=== PATIENT | female | born 1970 | race Hispanic/Latino ===

== ENCOUNTER 2021-08-15 21:42 | Emergency (ER) | payer OTHER, SELFPAY ==
--- OUTSIDE RECORDS SUMMARY | 2021-08-15 23:25 | XMS REPORT | Continuity of Care Document ---
:[address] [facility] t Address [address] [place] [address] Care Team Providers Name Role Phone Kasi Veliz Attending Clinician Unavailable FRANCIS Attending Clinician Unavailable RAUEDL Attending Clinician Unavailable Devaughn Sidhu DO Attending Clinician Raudel VARGAS Attending Clinician Francis BEAN Attending Clinician Gramm [employer], A Attending Clinician Doctor Unassigned, Name Attending Clinician Unavailable Only, Test Attending Clinician Unavailable Marcio BEAN, [place] Attending Clinician MARCIO, [place] Attending Clinician Unavailable Nacho BEAN, Cam Attending Clinician FRANCIS Admitting Clinician Unavailable Francis BEAN Admitting Clinician Payers Payer Name Policy Type Policy Number Effective Date Expiration Date Cindi BROWN O [id number] 2016 00:00:00 Problems Condition Condition Condition Status Onset Resolution Last Treating Co mments Source Name Details Category Date Date Treatment Clinician Date Indigestio Indigestio Disease Active Overview : Univers n n 07-01 Added ity of 00:00: automatic [place] 00 ally from Medical request Branch for surgery [id number] Encounter Encounter Disease Active Overview: Univers for for 07-01 Added ity of screening screening 00:00[place] colon[place] colonoscop 00 ally from Medical y y request Branch for surgery [id number] Obesity Obesity Disease Active Univers (BMI (BMI 1-29 ity of 30-39.9) 30-39.9) 00:00: [place] 00 Medical Branch Stress Stress Disease Active Univers incontinen incontinen 1-29 it y of ce ce 00:00: [place] 00 Medical Branch Family Family Disease Active Univers history of history of 05-21 it y of breast breast 00:00: [place] cancer in cancer in 00 Medi shameka mother mother Branch Well woman Well woman Disease Active U nivers exam with exam with - ity of routine routine 00:00: [place] gynecologi gynecologi 00 Me dical shameka exam shameka exam Branch Allergies, Adverse Reactions, Alerts Allergy Allergy Status Severity Reaction(s) Onset Inactive Treating Comm ents Source Name Type Date Date Clinician NO KNOWN Drug Active Univers ALLERGIE Class ity of S [facility] Social History Social Habit Start Date Stop Date Quantity Comments Source Exposure to Not sure [facility] SARS-CoV-2 [facility] (event) [place] Tobacco use and 2020-05-31 2020-05-31 Former user Universi ty of exposure 00:00:00 00:00:00 [facility] Alcohol intake 2020-05-31 2020-05-31 Current drinker Unive rsity of 00:00:00 00:00:00 of alcohol [facility] (finding) [place] Alcohol Comment 2017-05-21 2017-05-21 rare Universit y of 00:00:00 00:00:00 [facility] History of 1996-05-21 Cigarette Smoker Universi ty of tobacco use 00:00:00 [facility] Sex Ass[birth year] At [birth year] Universit y of 00:00:00 00:00:00 [facility] Smoking Status Start Date Stop Date Source Former smoker 2020-05-31 00:00:00 2020-05-31 00:00:00 Universi ty of [facility] Medications Ordered Filled Start Stop Current Ordering Indication Dosage Frequency Signature Comments Components Source Medication Medication Date Date Medication? Clinician (SIG) Name Name metroNIDAZO Yes [id number] 500mg Take 1 Univers LE 500 mg 2-03 tablet by ity o f tablet 00:00: mouth [place] 00 every 12 Medical (twelve) Branch hours. metroNIDAZO Yes [id number] 500mg Take 1 Univers LE 500 mg 2-03 tablet by ity o f tablet 00:00: mouth [place] 00 every 12 Medical (twelve) Branch hours. metroNIDAZO Yes [id number] 500mg Take 1 Univers LE 500 mg 2-03 tablet by ity o f tablet 00:00: mouth [place] 00 every 12 Medical (twelve) Branch hours. fluconazole 2020-2020- No [id number] 150mg Take 1 Univers (DIFLUCAN) 2-03 02-04 tablet by ity of 150 mg 00:00: 05:59 [place] tablet [place] :00 now for 1 Medical dose. Branch fluconazole 2020- No [id number] 150mg Take 1 Univers (DIFLUCAN) 2-03 02-04 tablet by ity of 150 mg 00:00: 05:59 [place] tablet 00 :00 now for 1 Medical dose. Branch mv-mn/iron/ 2020- No Take by U nivers folic 205-31 mouth. ity of acid/herb 19:02: 00:00 [place] 190 00 :00 Medical (VITAMIN D3 Branch COMPLETE ORAL) mv-mn/iron/ 2020- No Take by U nivers folic 205-31 mouth. ity of acid/herb 19:02: 00:00 [place] 190 00 :00 Medical (VITAMIN D3 Branch COMPLETE ORAL) mv-mn/iron/ 2020- No Take by U nivers folic 205-31 mouth. ity of acid/herb 19:02: 00:00 [place] 190 00 :00 Medical (VITAMIN D3 Branch COMPLETE ORAL) mv-mn/iron/ 2019-04 Yes Take by Un lauryn folic 0-15 mouth. ity of acid/herb 14:27: [place] 190 05 Medical (VITAMIN D3 Branch COMPLETE ORAL) mv-mn/iron/ 2019- Yes Take by Un lauryn folic 0-15 mouth. ity of acid/herb 14:27: [place] 190 05 Medical (VITAMIN D3 Branch COMPLETE ORAL) pantoprazol 2019-0 Yes [id number] 40mg Take 1 Univers e 40 mg EC 8-04 tablet by ity of tablet 00:00: mouth [place] 00 daily. Medical Branch pantoprazol 2019-0 Yes [id number] 40mg Take 1 Univers e 40 mg EC 8-04 tablet by ity of tablet 00:00: mouth [place] 00 daily. Medical Branch pantoprazol 2020-0 Yes [id number] 40mg Take 1 Univers e 40 mg EC 8-04 tablet by ity of tablet 00:00: mouth [place] 00 daily. Medical Branch pantoprazol 2020-0 Yes [id number] 40mg Take 1 Univers e 40 mg EC 8-04 tablet by ity of tablet 00:00: mouth [place] 00 daily. Medical Branch pantoprazol 2020-0 Yes [id number] 40mg Take 1 Univers e 40 mg EC 8-04 tablet by ity of tablet 00:00: mouth [place] 00 daily. Medical Branch pantoprazol 2020-0 Yes [id number] 40mg Take 1 Univers e 40 mg EC 8-04 tablet by ity of tablet 00:00: mouth [place] 00 daily. Medical Branch pantoprazol 2020-0 Yes [id number] 40mg Take 1 Univers e 40 mg EC 8-04 tablet by ity of tablet 00:00: mouth [place] 00 daily. Medical Branch pantoprazol 2020-0 Yes [id number] 40mg Take 1 Univers e 40 mg EC 8-04 tablet by ity of tablet 00:00: mouth [place] 00 daily. Medical Branch pantoprazol 2020-0 Yes [id number] 40mg Take 1 Univers e 40 mg EC 8-04 tablet by ity of tablet 00:00: mouth [place] 00 daily. Medical Branch pantoprazol 2020-0 Yes [id number] 40mg Take 1 Univers e 40 mg EC 8-04 tablet by ity of tablet 00:00: mouth [place] 00 daily. Medical Branch pantoprazol 2020-0 Yes [id number] 40mg Take 1 Univers e 40 mg EC 8-04 tablet by ity of tablet 00:00: mouth [place] 00 daily. Medical Branch amoxicillin 2020-0 Yes [id number] 1000mg Take 2 Univers 500 mg 7-07 capsules ity of capsule 00:00: [place] mouth 2 [place] 00 (two) Medical times Branch daily. metroNIDAZO 2020-0 Yes [id number] 500mg Take 1 Univers LE (FLAGYL) 7-07 tablet by ity of 500 mg 00:00: mouth 2 [place] tablet 00 (two) Medical times Branch daily. Bismuth 2020-0 Yes [id number] 15mL Take 15 mL Univers Subsalicyla 7-07 by mouth 4 it y of te 00:00: (four) [place] (PEPTO-BISM 00 times Medical OL MAX ST) daily. Branch 525 mg/15 mL suspension amoxicillin 2020-0 Yes [id number] 1000mg Take 2 Univers 500 mg 7-07 capsules ity of capsule 00:00: [place] mouth 2 [place] 00 (two) Medical times Branch daily. metroNIDAZO 2020-0 Yes [id number] 500mg Take 1 Univers LE (FLAGYL) 7-07 tablet by ity of 500 mg 00:00: mouth 2 [place] tablet 00 (two) Medical times Branch daily. Bismuth 2020-0 Yes [id number] 15mL Take 15 mL Univers Subsalicyla 7-07 by mouth 4 it y of te 00:00: (four) [place] (PEPTO-BISM 00 times Medical OL MAX ST) daily. Branch 525 mg/15 mL suspension amoxicillin 2020-0 Yes [id number] 1000mg Take 2 Univers 500 mg 7-07 capsules ity of capsule 00:00: [place] mouth 2 [place] 00 (two) Medical times Branch daily. metroNIDAZO 2020-0 Yes [id number] 500mg Take 1 Univers LE (FLAGYL) 7-07 tablet by ity of 500 mg 00:00: mouth 2 [place] tablet 00 (two) Medical times Branch daily. Bismuth 2020-0 Yes [id number] 15mL Take 15 mL Univers Subsalicyla 7-07 by mouth 4 it y of te 00:00: (four) [place] (PEPTO-BISM 00 times Medical OL MAX ST) daily. Branch 525 mg/15 mL suspension amoxicillin 2020-0 Yes [id number] 1000mg Take 2 Univers 500 mg 7-07 capsules ity of capsule 00:00: [place] mouth 2 [place] 00 (two) Medical times Branch daily. metroNIDAZO 2020-0 Yes [id number] 500mg Take 1 Univers LE (FLAGYL) 7-07 tablet by ity of 500 mg 00:00: mouth 2 [place] tablet 00 (two) Medical times Branch daily. Bismuth 2020-0 Yes [id number] 15mL Take 15 mL Univers Subsalicyla 7-07 by mouth 4 it y of te 00:00: (four) [place] (PEPTO-BISM 00 times Medical OL MAX ST) daily. Branch 525 mg/15 mL suspension amoxicillin 2020-0 Yes [id number] 1000mg Take 2 Univers 500 mg 7-07 capsules ity of capsule 00:00: [place] mouth 2 [place] 00 (two) Medical times Branch daily. metroNIDAZO 2020-0 Yes [id number] 500mg Take 1 Univers LE (FLAGYL) 7-07 tablet by ity of 500 mg 00:00: mouth 2 [place] tablet 00 (two) Medical times Branch daily. Bismuth 2020-0 Yes [id number] 15mL Take 15 mL Univers Subsalicyla 7-07 by mouth 4 it y of te 00:00: (four) [place] (PEPTO-BISM 00 times Medical OL MAX ST) daily. Branch 525 mg/15 mL suspension amoxicillin 2020-0 Yes [id number] 1000mg Take 2 Univers 500 mg 7-07 capsules ity of capsule 00:00: [place] mouth 2 [place] 00 (two) Medical times Branch daily. metroNIDAZO 2020-0 Yes [id number] 500mg Take 1 Univers LE (FLAGYL) 7-07 tablet by ity of 500 mg 00:00: mouth 2 [place] tablet 00 (two) Medical times Branch daily. Bismuth 2020-0 Yes [id number] 15mL Take 15 mL Univers Subsalicyla 7-07 by mouth 4 it y of te 00:00: (four) [place] (PEPTO-BISM 00 times Medical OL MAX ST) daily. Branch 525 mg/15 mL suspension amoxicillin 2020-0 Yes [id number] 1000mg Take 2 Univers 500 mg 7-07 capsules ity of capsule 00:00: by mouth 2 [place] 00 (two) Medical times Branch daily. metroNIDAZO 2020-0 Yes [id number] 500mg Take 1 Univers LE (FLAGYL) 7-07 tablet by ity of 500 mg 00:00: mouth 2 [place] tablet 00 (two) Medical times Branch daily. Bismuth 2020-0 Yes [id number] 15mL Take 15 mL Univers Subsalicyla 7-07 by mouth 4 it y of te 00:00: (four) [place] (PEPTO-BISM 00 times Medical OL MAX ST) daily. Branch 525 mg/15 mL suspension amoxicillin 2020-0 2021- No [id number] 1000mg Take 2 Univers 500 mg 7-07 02-01 capsules ity of capsule 00:00: 00:00 by mouth 2 [place] 00 :00 (two) Medical times Branch daily. metroNIDAZO 2020-0 202- No [id number] 500mg Take 1 Univers LE (FLAGYL) 11-03- tablet by it y of 500 mg 00:00: 00:00 mouth 2 [place] tablet 00 :00 (two) Medical times Branch daily. Bismuth 2020-0 2020- No [id number] 15mL Take 15 mL Univers Subsalicyla 11-03 by mouth 4 i ty of te 00:00: 00:00 (four) [place] (PEPTO-BISM 00 :00 times Medical OL MAX ST) daily. Branch 525 mg/15 mL suspension amoxicillin 2020-0 2020- No [id number] 1000mg Take 2 Univers 500 mg 11-03 capsules ity of capsule 00:00: 00:00 by mouth 2 [place] 00 :00 (two) Medical times Branch daily. metroNIDAZO 2020-0 2020- No [id number] 500mg Take 1 Univers LE (FLAGYL) 11-03 tablet by it y of 500 mg 00:00: 00:00 mouth 2 [place] tablet 00 :00 (two) Medical times Branch daily. Bismuth 2020-0 2020- No [id number] 15mL Take 15 mL Univers Subsalicyla 11-03 by mouth 4 i ty of te 00:00: 00:00 (four) [place] (PEPTO-BISM 00 :00 times Medical [address]) daily. Branch 525 mg/15 mL suspension amoxicillin 2020-0 2020- No [id number] 1000mg Take 2 Univers 500 mg 11-03 capsules ity of capsule 00:00: 00:00 by mouth 2 [place] 00 :00 (two) Medical times Branch daily. metroNIDAZO 2020-0 2020- No [id number] 500mg Take 1 Univers LE (FLAGYL) 11-03 tablet by it y of 500 mg 00:00: 00:00 mouth 2 [place] tablet 00 :00 (two) Medical times Branch daily. Bismuth 2020-0 2020- No [id number] 15mL Take 15 mL Univers Subsalicyla 11-03 by mouth 4 i ty of te 00:00: 00:00 (four) [place] (PEPTO-BISM 00 :00 times Medical OL [address]) daily. Branch 525 mg/15 mL suspension mv-mn/iron/ 2020-0 Yes Take by Un lauryn folic 10-23 mouth. ity of acid/herb 15:12: [place] Medical (VITAMIN D3 Branch COMPLETE ORAL) mv-mn/iron/ 2020-0 Yes Take by Un lauryn folic 10-23 mouth. ity of acid/herb 15:12: Medical (VITAMIN D3 Branch COMPLETE ORAL) mv-mn/iron/ 2020-0 Yes Take by Un lauryn folic 10-23 mouth. ity of acid/herb 15:12: Medical (VITAMIN D3 Branch COMPLETE ORAL) mv-mn/iron/ 2020-0 Yes Take by Un lauryn folic 10-23 mouth. ity of acid/herb 15:12: Medical (VITAMIN D3 Branch COMPLETE ORAL) mv-mn/iron/ 2020-0 Yes Take by Un lauryn folic 10-23 mouth. ity of acid/herb 15:12: Medical (VITAMIN D3 Branch COMPLETE ORAL) mv-mn/iron/ 2020-0 Yes Take by Un lauryn folic 10-23 mouth. ity of acid/herb 15:12: Medical (VITAMIN D3 Branch COMPLETE ORAL) mv-mn/iron/ 2020-0 Yes Take by Un lauryn folic 10-23 mouth. ity of acid/herb 15:12: Medical (VITAMIN D3 Branch COMPLETE ORAL) water for 2019-0 Yes PRN, Univers irrigation 10-23 Starting ity o f irrigation 12:35: Fri [place] solution 00 10/24/19 at Medic al 0735, Branch Until Discontinu ed, Routine, Intra-op simethicone 2019-0 Yes PRN, [facility] s (GAS RELIEF 10-23 Starting ity of (SIMETHICON 12:35: Fri [place] E)) 40 00 10/24/19 at Medical mg/0.6 mL 0735, Branch drops Until Discontinu ed, Routine, Intra-op lactated 2019- 2020- No [facility] 10-23 06-26 mL/hr, ity of infusion 11:45: 11:49 1,000 mL, [place] 1,000 mL 00 :00 IV Medical Infusion, Branch ONCE, 1 dose, Sun10/24/19 at 0645, Routine, [facility] Pre-op pantoprazol 2019-0 Yes [id number] 40mg Take 1 Univers e 40 mg EC 6-26 tablet by ity of tablet 00:00: mouth [place] 00 daily. Medical Branch pantoprazol 2020-0 Yes [id number] 40mg Take 1 Univers e 40 mg EC 6-26 tablet by ity of tablet 00:00: mouth [place] 00 daily. Medical Branch pantoprazol 2020-0 Yes [id number] 40mg Take 1 Univers e 40 mg EC 6-26 tablet by ity of tablet 00:00: mouth [place] 00 daily. Medical Branch pantoprazol 2020-0 Yes [id number] 40mg Take 1 Univers e 40 mg EC 6-26 tablet by ity of tablet 00:00: mouth [place] 00 daily. Medical Branch pantoprazol 2020-0 2020- No [id number] 40mg Take 1 Univers e 40 mg EC 6-26 07-30 tablet by ity of tablet 00:00: 00:00 mouth [place] 00 :00 daily. Medical Branch peg-electro 2020-0 Yes Take as Uni vers lyte soln 3-03 directed ity of 236-22.74-6 00:00: [place] .74 -5.86 00 Medical [facility] Branch solution peg-electro 2020-0 Yes Take as Uni vers lyte soln 3-03 directed ity of 236-22.74-6 00:00: [place] .74 -5.86 00 Medical [facility] Branch solution peg-electro 2020-0 Yes Take as Uni vers lyte soln 3-03 directed ity of 236-22.74-6 00:00: [place] .74 -5.86 00 Medical gram Branch solution peg-electro 2020-0 Yes Take as Uni vers lyte soln 3-03 directed ity of 236-22.74-6 00:00: [place] .74 -5.86 00 Medical [facility] Branch solution peg-electro 2020-0 Yes Take as Uni vers lyte soln 3-03 directed ity of 236-22.74-6 00:00: [place] .74 -5.86 00 Medical gram Branch solution peg-electro 2020-0 Yes Take as Uni vers lyte soln 3-03 directed ity of 236-22.74-6 00:00: [place] .74 -5.86 00 Medical gram Branch solution peg-electro 2020-0 Yes Take as Uni vers lyte soln 3-03 directed ity of 236-22.74-6 00:00: [place] .74 -5.86 00 Medical gram Branch solution peg-electro 2019-0 Yes Take as Uni vers lyte soln 06-30 directed ity of 236-22.74-6 00:00: [place] .74 -5.86 00 Medical gram Branch solution peg-electro 2019-0 2020- No Take as Un lauryn lyte soln 3- 06- directed ity o f 236-22.74-6 00:00: 00:00 [place] .74 -5.86 00 :00 Medical gram Branch solution isoniazid 2019-0 2020- No 300mg Take 300 Un lauryn 300 mg 1-29 01-29 mg by ity of tablet 19:58: 00:00 mouth [place] 41 :00 daily. Medical Branch isoniazid 2019-0 2020- No 300mg Take 300 Un lauryn 300 mg 1-29 01-29 mg by ity of tablet 19:58: 00:00 mouth [place] 41 :00 daily. Medical Branch norgestimat 2020-0 Yes [id number] 1{tbl} Take 1 Univers e-ethinyl 1-29 tablet by ity o f estradiol 00:00: mouth [place] 0.25-35 00 daily. Medical mg-mcg per Branch tablet norgestimat 2020-0 Yes [id number] 1{tbl} Take 1 Univers e-ethinyl 1-29 tablet by ity o f estradiol 00:00: mouth [place] 0.25-35 00 daily. Medical mg-mcg per Branch tablet norgestimat 2020-0 Yes [id number] 1{tbl} Take 1 Univers e-ethinyl 1-29 tablet by ity o f estradiol 00:00: mouth [place] 0.25-35 00 daily. Medical mg-mcg per Branch tablet norgestimat 2020-0 Yes [id number] 1{tbl} Take 1 Univers e-ethinyl 1-29 tablet by ity o f estradiol 00:00: mouth [place] 0.25-35 00 daily. Medical mg-mcg per Branch tablet norgestimat 2020-0 Yes [id number] 1{tbl} Take 1 Univers e-ethinyl 1-29 tablet by ity o f estradiol 00:00: mouth [place] 0.25-35 00 daily. Medical mg-mcg per Branch tablet norgestimat 2020-0 Yes [id number] 1{tbl} Take 1 Univers e-ethinyl 1-29 tablet by ity o f estradiol 00:00: mouth [place] 0.25-35 00 daily. Medical mg-mcg per Branch tablet norgestimat 2020-0 Yes [id number] 1{tbl} Take 1 Univers e-ethinyl 1-29 tablet by ity o f estradiol 00:00: mouth [place] 0.25-35 00 daily. Medical mg-mcg per Branch tablet norgestimat 2020-0 Yes [id number] 1{tbl} Take 1 Univers e-ethinyl 1-29 tablet by ity o f estradiol 00:00: mouth [place] 0.25-35 00 daily. Medical mg-mcg per Branch tablet norgestimat 2020-0 Yes [id number] 1{tbl} Take 1 Univers e-ethinyl 1-29 tablet by ity o f estradiol 00:00: mouth [place] 0.25-35 00 daily. Medical mg-mcg per Branch tablet norgestimat 2020-0 Yes [id number] 1{tbl} Take 1 Univers e-ethinyl 1-29 tablet by ity o f estradiol 00:00: mouth [place] 0.25-35 00 daily. Medical mg-mcg per Branch tablet norgestimat 2020-0 Yes [id number] 1{tbl} Take 1 Univers e-ethinyl 1-29 tablet by ity o f estradiol 00:00: mouth [place] 0.25-35 00 daily. Medical mg-mcg per Branch tablet norgestimat 2020-0 Yes [id number] 1{tbl} Take 1 Univers e-ethinyl 1-29 tablet by ity o f estradiol 00:00: mouth [place] 0.25-35 00 daily. Medical mg-mcg per Branch tablet norgestimat 2020-0 Yes [id number] 1{tbl} Take 1 Univers e-ethinyl 1-29 tablet by ity o f estradiol 00:00: mouth [place] 0.25-35 00 daily. Medical mg-mcg per Branch tablet norgestimat 2020-0 Yes [id number] 1{tbl} Take 1 Univers e-ethinyl 1-29 tablet by ity o f estradiol 00:00: mouth [place] 0.25-35 00 daily. Medical mg-mcg per Branch tablet norgestimat 2020-0 Yes [id number] 1{tbl} Take 1 Univers e-ethinyl 1-29 tablet by ity o f estradiol 00:00: mouth [place] 0.25-35 00 daily. Medical mg-mcg per Branch tablet norgestimat 2020-0 Yes [id number] 1{tbl} Take 1 Univers e-ethinyl 1-29 tablet by ity o f estradiol 00:00: mouth [place] 0.25-35 00 daily. Medical mg-mcg per Branch tablet norgestimat 2020-0 Yes [id number] 1{tbl} Take 1 Univers e-ethinyl 1-29 tablet by ity o f estradiol 00:00: mouth [place] 0.25-35 00 daily. Medical mg-mcg per Branch tablet norgestimat 2020-0 Yes [id number] 1{tbl} Take 1 Univers e-ethinyl 1-29 tablet by ity o f estradiol 00:00: mouth [place] 0.25-35 00 daily. Medical mg-mcg per Branch tablet norgestimat 2020-0 Yes [id number] 1{tbl} Take 1 Univers e-ethinyl 1-29 tablet by ity o f estradiol 00:00: mouth [place] 0.25-35 00 daily. Medical mg-mcg per Branch tablet norgestimat 2020-0 Yes [id number] 1{tbl} Take 1 Univers e-ethinyl 1-29 tablet by ity o f estradiol 00:00: mouth [place] 0.25-35 00 daily. Medical mg-mcg per Branch tablet norgestimat 2020-0 Yes [id number] 1{tbl} Take 1 Univers e-ethinyl 1-29 tablet by ity o f estradiol 00:00: mouth [place] 0.25-35 00 daily. Medical mg-mcg per Branch tablet norgestimat 2020-0 Yes [id number] 1{tbl} Take 1 Univers e-ethinyl 1-29 tablet by ity o f estradiol 00:00: mouth [place] 0.25-35 00 daily. Medical mg-mcg per Branch tablet norgestimat 2020-0 2021- No [id number] 1{tbl} Take 1 Univers e-ethinyl 1-29 02-01 tablet by ity of estradiol 00:00: 00:00 mouth [place] 0.25-35 00 :00 daily. Medical mg-mcg per Branch tablet norgestimat 2020-0 2020- No [id number] 1{tbl} Take 1 Univers e-ethinyl 05-28 tablet by ity of estradiol 00:00: 00:00 mouth [place] 0.25-35 00 :00 daily. Medical mg-mcg per Branch tablet norgestimat 2020-0 2020- No [id number] 1{tbl} Take 1 Univers e-ethinyl 05-28 tablet by ity of estradiol 00:00: 00:00 mouth [place] 0.25-35 00 :00 daily. Medical mg-mcg per Branch tablet mometasone 2020-0 Yes Univers 50 1-05 ity of mcg/actuati 00:00: [place] on nasal 00 Medical spray Branch mometasone 2020-0 Yes Univers 50 1-05 ity of mcg/actuati 00:00: [place] on nasal 00 Medical spray Branch mometasone 2020-0 Yes Univers 50 1-05 ity of mcg/actuati 00:00: [place] on nasal 00 Medical spray Branch mometasone 2020-0 Yes Univers 50 1-05 ity of mcg/actuati 00:00: [place] on nasal 00 Medical spray Branch mometasone 2020-0 Yes Univers 50 1-05 ity of mcg/actuati 00:00: [place] on nasal 00 Medical spray Branch mometasone 2020-0 Yes Univers 50 1-05 ity of mcg/actuati 00:00: [place] on nasal 00 Medical spray Branch mometasone 2020-0 Yes Univers 50 1-05 ity of mcg/actuati 00:00: [place] on nasal 00 Medical spray Branch mometasone 2020-0 Yes Univers 50 1-05 ity of mcg/actuati 00:00: [place] on nasal 00 Medical spray Branch mometasone 2020-0 Yes Univers 50 1-05 ity of mcg/actuati 00:00: [place] on nasal 00 Medical spray Branch mometasone 2020-0 Yes Univers 50 1-05 ity of mcg/actuati 00:00: [place] on nasal 00 Medical spray Branch mometasone 2020-0 Yes Univers 50 1-05 ity of mcg/actuati 00:00: [place] on nasal 00 Medical spray Branch mometasone 2020-0 Yes Univers 50 1-05 ity of mcg/actuati 00:00: [place] on nasal 00 Medical spray Branch mometasone 2020-0 Yes Univers 50 1-05 ity of mcg/actuati 00:00: [place] on nasal 00 Medical spray Branch mometasone 2020-0 Yes Univers 50 1-05 ity of mcg/actuati 00:00: [place] on nasal 00 Medical spray Branch mometasone 2020-0 Yes Univers 50 1-05 ity of mcg/actuati 00:00: [place] on nasal 00 Medical spray Branch mometasone 2020-0 Yes Univers 50 1-05 ity of mcg/actuati 00:00: [place] on nasal 00 Medical spray Branch mometasone 2020-0 Yes Univers 50 1-05 ity of mcg/actuati 00:00: [place] on nasal 00 Medical spray Branch mometasone 2020-0 Yes Univers 50 1-05 ity of mcg/actuati 00:00: [place] on nasal 00 Medical spray Branch mometasone 2020-0 Yes Univers 50 1-05 ity of mcg/actuati 00:00: [place] on nasal 00 Medical spray Branch mometasone 2020-0 Yes Univers 50 1-05 ity of mcg/actuati 00:00: [place] on nasal 00 Medical spray Branch mometasone 2020-0 Yes Univers 50 1-05 ity of mcg/actuati 00:00: [place] on nasal 00 Medical spray Branch mometasone 2020-0 Yes Univers 50 1-05 ity of mcg/actuati 00:00: [place] on nasal 00 Medical spray Branch mometasone 2020-0 Yes Univers 50 1-05 ity of mcg/actuati 00:00: [place] on nasal 00 Medical spray Branch mometasone 2020-0 Yes Univers 50 1-05 ity of mcg/actuati 00:00: [place] on nasal 00 Medical spray Branch mometasone 2020-0 Yes Univers 50 1-05 ity of mcg/actuati 00:00: [place] on nasal 00 Medical spray Branch mometasone 2020-0 Yes Univers 50 1-05 ity of mcg/actuati 00:00: [place] on nasal 00 Medical spray Branch mometasone 2020-0 Yes Univers 50 1-05 ity of mcg/actuati 00:00: [place] on nasal 00 Medical spray Branch mometasone 2020-0 Yes Univers 50 1-05 ity of mcg/actuati 00:00: [place] on nasal 00 Medical spray Branch norgestimat 2018-04 Yes [id number] 1{tbl} Take 1 Univers e-ethinyl 2-01 tablet by ity o f estradiol 00:00: mouth [place] 0.25-35 00 daily. Medical mg-mcg per Branch tablet norgestimat 2018-04 Yes [id number] 1{tbl} Take 1 Univers e-ethinyl 2-01 tablet by ity o f estradiol 00:00: mouth [place] 0.25-35 00 daily. Medical mg-mcg per Branch tablet norgestimat 2018-04 Yes [id number] 1{tbl} Take 1 Univers e-ethinyl 2-01 tablet by ity o f estradiol 00:00: mouth [place] 0.25-35 00 daily. Medical mg-mcg per Branch tablet norgestimat 2018-04 2020- No [id number] 1{tbl} Take 1 Univers e-ethinyl 2-01 -29 tablet by ity of estradiol 00:00: 00:00 mouth [place] 0.25-35 00 :00 daily. Medical mg-mcg per Branch tablet norgestimat 2018-04 2020- No [id number] 1{tbl} Take 1 Univers e-ethinyl 2-01 -29 tablet by ity of estradiol 00:00: 00:00 mouth [place] 0.25-35 00 :00 daily. Medical mg-mcg per Branch tablet mv-mn/iron/ Yes Take by Un lauryn folic 1-30 mouth. ity of acid/herb 19:16: [place] [id number] Medical (VITAMIN D3 Branch COMPLETE ORAL) mv-mn/iron/ Yes Take by Un lauryn folic 1-30 mouth. ity of acid/herb 19:16: [place] [id number] Medical (VITAMIN D3 Branch COMPLETE ORAL) mv-mn/iron/ Yes Take by Un lauryn folic 1-30 mouth. ity of acid/herb 19:16: [place] [id number] Medical (VITAMIN D3 Branch COMPLETE ORAL) mv-mn/iron/ Yes Take by Un lauryn folic 1-30 mouth. ity of acid/herb 19:16: [place] [id number] Medical (VITAMIN D3 Branch COMPLETE ORAL) mv-mn/iron/ Yes Take by Un lauryn folic 1-30 mouth. ity of acid/herb 19:16: [place] [id number] Medical (VITAMIN D3 Branch COMPLETE ORAL) mv-mn/iron/ 0 Yes Take by Un lauryn folic 1-30 mouth. ity of acid/herb 19:16: [place] [id number] Medical (VITAMIN D3 Branch COMPLETE ORAL) mv-mn/iron/ 0 Yes Take by Un lauryn folic 1-30 mouth. ity of acid/herb 19:16: [place] [id number] Medical (VITAMIN D3 Branch COMPLETE ORAL) mv-mn/iron/ 0 Yes Take by Un lauryn folic 1-30 mouth. ity of acid/herb 19:16: [place] [address] Medical (VITAMIN D3 Branch COMPLETE ORAL) mv-mn/iron/ 0 Yes Take by Un lauryn folic 1-30 mouth. ity of acid/herb 19:16: [place] [id number] Medical (VITAMIN D3 Branch COMPLETE ORAL) mv-mn/iron/ Yes Take by Un lauryn folic 1-30 mouth. ity of acid/herb 19:16: [place] [address] Medical (VITAMIN D3 Branch COMPLETE ORAL) mv-mn/iron/ Yes Take by Un lauryn folic 1-30 mouth. ity of acid/herb 19:16: [place] [address] Medical (VITAMIN D3 Branch COMPLETE ORAL) mv-mn/iron/ Yes Take by Un lauryn folic 1-30 mouth. ity of acid/herb 19:16: [place] [id number] Medical (VITAMIN D3 Branch COMPLETE ORAL) mv-mn/iron/ 0 Yes Take by Un lauryn folic 1-30 mouth. ity of acid/herb 19:16: [place] [address] Medical (VITAMIN D3 Branch COMPLETE ORAL) mv-mn/iron/ 0 Yes Take by Un lauryn folic 1-30 mouth. ity of acid/herb 19:16: [place] [address] Medical (VITAMIN D3 Branch COMPLETE ORAL) mv-mn/iron/ 0 Yes Take by Un lauryn folic 1-30 mouth. ity of acid/herb 19:16: [place] [id number] Medical (VITAMIN D3 Branch COMPLETE ORAL) mv-mn/iron/ 0 Yes Take by Un lauryn folic 1-30 mouth. ity of acid/herb 19:16: [place] [id number] Medical (VITAMIN D3 Branch COMPLETE ORAL) isoniazid 2018-0 Yes 300mg Take 300 Uni vers 300 mg 1-30 mg by ity of tablet 19:16: mouth [place] 50 daily. Medical Branch isoniazid 2019-0 Yes 300mg Take 300 Uni vers 300 mg 1-30 mg by ity of tablet 19:16: mouth [place] 50 daily. Medical Branch isoniazid 2019-0 Yes 300mg Take 300 Uni vers 300 mg 1-30 mg by ity of tablet 19:16: mouth [place] 50 daily. [facility] Immunizations Ordered Filled Immunization Date Status Comments [facility] e Immunization Name Name Influenza Virus 2019-05-28 Completed Universit y of Vaccine Quad .5 mL 00:00:00 [facility] IM 6+ MO Branch TDAP (ADACEL) 2019-05-28 Completed University of VACCINE 00:00:00 [facility] Influenza Virus 2019-05-28 Completed Universit y of Vaccine Quad .5 mL 00:00:00 [facility] IM 6+ MO Branch TDAP (ADACEL) 2019-05-28 Completed University of VACCINE 00:00:00 [facility] Influenza Virus 2019-05-28 Completed Universit y of Vaccine Quad .5 mL 00:00:00 [facility] IM 6+ MO Branch TDAP (ADACEL) 2019-05-28 Completed University of VACCINE 00:00:00 [facility] Influenza Virus 2019-05-28 Completed Universit y of Vaccine Quad .5 mL 00:00:00 [facility] IM 6+ MO Branch TDAP (ADACEL) 2019-05-28 Completed University of VACCINE 00:00:00 [facility] Influenza Virus 2019-05-28 Completed Universit y of Vaccine Quad .5 mL 00:00:00 [facility] IM 6+ MO Branch TDAP (ADACEL) 2019-05-28 Completed University of VACCINE 00:00:00 [facility] Influenza Virus 2019-05-28 Completed Universit y of Vaccine Quad .5 mL 00:00:00 [facility] IM 6+ MO Branch TDAP (ADACEL) 2019-05-28 Completed University of VACCINE 00:00:00 [facility] Influenza Virus 2019-05-28 Completed Universit y of Vaccine Quad .5 mL 00:00:00 [place] [facility] IM 6+ MO Branch TDAP (ADACEL) 2019-05-28 Completed University of VACCINE 00:00:00 [facility] Influenza Virus 2019-05-28 Completed Universit y of Vaccine Quad .5 mL 00:00:00 [place] [facility] IM 6+ MO Branch TDAP (ADACEL) 2019-05-28 Completed University of VACCINE 00:00:00 [facility] Influenza Virus 2019-05-28 Completed Universit y of Vaccine Quad .5 mL 00:00:00 [place] [facility] IM 6+ MO Branch TDAP (ADACEL) 2019-05-28 Completed University of VACCINE 00:00:00 [facility] Influenza Virus 2019-05-28 Completed Universit y of Vaccine Quad .5 mL 00:00:00 [place] [facility] IM 6+ MO Branch TDAP (ADACEL) 2019-05-28 Completed University of VACCINE 00:00:00 [facility] Influenza Virus 2019-05-28 Completed Universit y of Vaccine Quad .5 mL 00:00:00 [place] [facility] IM 6+ MO Branch TDAP (ADACEL) 2019-05-28 Completed University of VACCINE 00:00:00 [facility] Influenza Virus 2019-05-28 Completed Universit y of Vaccine Quad .5 mL 00:00:00 [facility] IM 6+ MO Branch TDAP (ADACEL) 2019-05-28 Completed University of VACCINE 00:00:00 [facility] Influenza Virus 2019-05-28 Completed Universit y of Vaccine Quad .5 mL 00:00:00 [place] [facility] IM 6+ MO Branch TDAP (ADACEL) 2019-05-28 Completed University of VACCINE 00:00:00 [facility] Influenza Virus 2019-05-28 Completed Universit y of Vaccine Quad .5 mL 00:00:00 [place] [facility] IM 6+ MO Branch TDAP (ADACEL) 2019-05-28 Completed University of VACCINE 00:00:00 [facility] Influenza Virus 2019-05-28 Completed Universit y of Vaccine Quad .5 mL 00:00:00 [place] [facility] IM 6+ MO Branch TDAP (ADACEL) 2019-05-28 Completed University of VACCINE 00:00:00 [facility] Influenza Virus 2019-05-28 Completed Universit y of Vaccine Quad .5 mL 00:00:00 [place] [facility] IM 6+ MO Branch TDAP (ADACEL) 2019-05-28 Completed University of VACCINE 00:00:00 [facility] Influenza Virus 2019-05-28 Completed Universit y of Vaccine Quad .5 mL 00:00:00 [place] [facility] IM 6+ MO Branch TDAP (ADACEL) 2019-05-28 Completed University of VACCINE 00:00:00 [facility] Influenza Virus 2019-05-28 Completed Universit y of Vaccine Quad .5 mL 00:00:00 [place] [facility] IM 6+ MO Branch TDAP (ADACEL) 2019-05-28 Completed University of VACCINE 00:00:00 [facility] Influenza Virus 2019-05-28 Completed Universit y of Vaccine Quad .5 mL 00:00:00 [place] [facility] IM 6+ MO Branch TDAP (ADACEL) 2019-05-28 Completed University of VACCINE 00:00:00 [facility] Influenza Virus 2019-05-28 Completed Universit y of Vaccine Quad .5 mL 00:00:00 [place] [facility] IM 6+ MO Branch TDAP (ADACEL) 2019-05-28 Completed University of VACCINE 00:00:00 [facility] Influenza Virus 2019-05-28 Completed Universit y of Vaccine Quad .5 mL 00:00:00 [place] [facility] IM 6+ MO Branch TDAP (ADACEL) 2019-05-28 Completed University of VACCINE 00:00:00 [facility] Influenza Virus 2019-05-28 Completed Universit y of Vaccine Quad .5 mL 00:00:00 [place] [facility] IM 6+ MO Branch TDAP (ADACEL) 2019-05-28 Completed University of VACCINE 00:00:00 [facility] Influenza Virus 2019-05-28 Completed Universit y of Vaccine Quad .5 mL 00:00:00 [place] [facility] IM 6+ MO Branch TDAP (ADACEL) 2019-05-28 Completed University of VACCINE 00:00:00 [facility] Influenza Virus 2019-05-28 Completed Universit y of Vaccine Quad .5 mL 00:00:00 [place] [facility] IM 6+ MO Branch TDAP (ADACEL) 2019-05-28 Completed University of VACCINE 00:00:00 [facility] Influenza Virus 2019-05-28 Completed Universit y of Vaccine Quad .5 mL 00:00:00 [place] [facility] IM 6+ MO Branch TDAP (ADACEL) 2019-05-28 Completed University of VACCINE 00:00:00 [facility] Influenza Virus 2019-05-28 Completed Universit y of Vaccine Quad .5 mL 00:00:00 [place] [facility] IM 6+ MO Branch TDAP (ADACEL) 2019-05-28 Completed University of VACCINE 00:00:00 [facility] Influenza Virus 2019-05-28 Completed Universit y of Vaccine Quad .5 mL 00:00:00 [place] [facility] IM 6+ MO Branch TDAP (ADACEL) 2019-05-28 Completed University of VACCINE 00:00:00 [facility] Influenza Virus 2019-05-28 Completed Universit y of Vaccine Quad .5 mL 00:00:00 [facility] IM 6+ MO Branch TDAP (ADACEL) 2019-05-28 Completed University of VACCINE 00:00:00 [facility] Vital Signs Vital Name Observation Time Observation Value Comments Source Systolic blood 2020-05-31 19:20:00 106 mm[Hg] Univer sity of pressure [facility] Diastolic blood 2020-05-31 19:20:00 66 mm[Hg] Unive rsity of pressure [facility] Heart rate 2020-05-31 19:20:00 77 /min Universi ty of [facility] Body temperature 2020-05-31 19:20:00 36.89 Skylar Univ ersity of [facility] Respiratory rate 2020-05-31 19:20:00 16 /min Univ ersity of [facility] Body height 2020-05-31 19:20:00 157.5 cm Universi ty of [facility] Body weight 2020-05-31 19:20:00 91.989 kg Universi ty of [facility] BMI 2020-05-31 19:20:00 37.09 kg/m2 Universi ty of [facility] Systolic blood 2020-02-12 14:26:00 103 mm[Hg] Univer sity of pressure [facility] Diastolic blood 2020-02-12 14:26:00 68 mm[Hg] Unive rsity of pressure [facility] Heart rate 2020-02-12 14:26:00 69 /min Universi ty of [facility] Body temperature 2020-02-12 14:26:00 36.39 Skylar Univ ersity of [facility] Respiratory rate 2020-02-12 14:26:00 16 /min Univ ersity of [facility] Branch Body height 2020-02-12 14:26:00 157.5 cm Universi ty of [facility] Branch Body weight 2020-02-12 14:26:00 88.814 kg Universi ty of [facility] Branch BMI 2020-02-12 14:26:00 35.81 kg/m2 Universi ty of [facility] Branch Systolic blood 2019-11-04 21:02:00 117 mm[Hg] Univer sity of pressure [facility] Branch Diastolic blood 2019-11-04 21:02:00 73 mm[Hg] Unive rsity of pressure [facility] Heart rate 2019-11-04 21:02:00 73 /min Universi ty of [facility] Body temperature 2019-11-04 21:02:00 36.56 Skylar Univ ersity of [facility] Respiratory rate 2019-11-04 21:02:00 18 /min Univ ersity of [facility] Body weight 2019-11-04 21:02:00 90.175 kg Universi ty of [facility] BMI 2019-11-04 21:02:00 36.35 kg/m2 Universi ty of [facility] Systolic blood 2019-10-24 14:05:00 112 mm[Hg] Univer sity of pressure [facility] Diastolic blood 2019-10-24 14:05:00 74 mm[Hg] Unive rsity of pressure [facility] Heart rate 2019-10-24 14:05:00 75 /min Universi ty of [facility] Respiratory rate 2019-10-24 14:05:00 16 /min Univ ersity of [facility] Oxygen saturation in 2019-10-24 14:05:00 100 /min [facility]ter[facility] blood by [facility] Pulse oximetry Branch Body temperature 2019-10-24 11:36:00 36.67 Skylar Univ ersity of [facility] Body weight 2019-10-09 20:44:00 90.7 kg Universi ty of [facility] BMI 2019-10-09 20:44:00 36.56 kg/m2 Universi ty of [facility] Body height 2019-09-08 14:40:00 157.5 cm Universi ty of [facility] Systolic blood 2019-07-01 20:05:00 108 mm[Hg] Univer sity of pressure [facility] Diastolic blood 2019-07-01 20:05:00 77 mm[Hg] Unive rsity of pressure [facility] Heart rate 2019-07-01 20:05:00 81 /min Universi ty of [facility] Body temperature 2019-07-01 20:05:00 37.17 Skylar Univ ersity of [facility] Respiratory rate 2019-07-01 20:05:00 18 /min Univ ersity of [facility] Body weight 2019-07-01 20:05:00 91.082 kg Universi ty of [facility] BMI 2019-07-01 20:05:00 36.73 kg/m2 Universi ty of [facility] Systolic blood 2019-05-28 18:55:00 123 mm[Hg] Univer sity of pressure [facility] Diastolic blood 2019-05-28 18:55:00 75 mm[Hg] Unive rsity of pressure [facility] Heart rate 2019-05-28 18:55:00 74 /min [facility] Body temperature 2019-05-28 18:55:00 37 Skylar [facility] Respiratory rate 2019-05-28 18:55:00 18 /min [facility] Body height 2019-05-28 18:55:00 157.5 cm [facility] Body weight 2019-05-28 18:55:00 92.534 kg [facility] BMI 2019-05-28 18:55:00 37.31 kg/m2 [facility] Procedures Procedure Date / Time Performing Clinician Source Performed POCT TEST 2020-05-31 19:33:00 Kelsy Starks [facility] COLONOSCOPY (ENDO) 2019-10-24 12:55:08 Angy Veliz [facility] EGD (ENDO) 2019-10-24 11:55:34 Angy Veliz [place] o [facility] POCT TEST 2019-10-24 11:47:00 Betty Sullivan [facility] COVID-19 (ID NOW RAPID 2019-10-23 17:56:00 Megan Blanco [facility] TESTING) [facility] NOTICE OF PRIVACY 2019-10-23 05:01:00 Doctor Unassigned, [facility] PRACTICES [place] [facility] ASSIGNMENT OF BENEFITS 2019-07-01 19:56:25 [facility] [place] [facility] TDAP (ADACEL) IMMUNIZATION 2019-05-28 19:25:07 [facility][id number][facility] 6+ 2019-05-28 19:25:07 Deandra Griffith [facility] MONTHS, IM, QUAD Medical Branch NO SHOW OR MISSED 2019-05-28 18:25:08 Doctor Unassigned, [facility] APPOINTMENT POLICY [place] [facility] h ACKNOWLEDGEMENT BI DIAGNOSTIC MAMMOGRAM 2019-05-21 18:58:44 Deandra Griffith [facility] BILATERAL Medical Branch ASSIGNMENT OF BENEFITS 2019-05-21 18:20:15 Doctor Unassigned, [facility] [place] [facility] Encounters Start End Encounter Admission Attending Care Care Encounter Source Date/Time Date/Time Type Type Clinicians Facility Department ID 2021-05-25 Outpatient Angy Vel[facility] [id number] 14:13:01 [id number] [facility] 2021-05-25 Outpatient Angy Veliz [facility] [id number] 12:04:05 [id number] [facility] 2021-02-24 [facility] [id number] Univers 12:36:36 MEGAN [facility] 2021-05-31 2021-05-31 [facility] [id number] Univers 13:00:00 13:00:00 KELSY [id number] [facility] 2020-08-12 2020-08-12 [facility] [id number] Univers 13:00:00 13:00:00 MEGAN [id number] [facility] 2020-07-21 2020-07-21 [facility] [id number] 2020-07-15 2020-07-15 Patient Nahum [facility] [id number] Univers 00:00:00 00:00:00 Outreach [facility] [id number] i ty of [facility] [id number] [phone] [place] dical [address] Branch 2020-06-02 2020-06-02 Case [facility] [id number] Univers 00:00:00 00:00:00 Management Kelsy Lay [id number] ity [id number] [phone] [place] dical nal [address] 2020-06-02 2020-06-02 Telephone [facility] [id number] Univers 00:00:00 00:00:00 Kelsy [place] [id number] i [id number] [phone] [address] 2020-06-01 2020-06-[address] [facility] [id number] Univers 14:15:00 14:15:00 [id number] [facility] 2020-06-01 2020-06-[address] [facility] [id number] Univers 14:15:00 14:15:00 [facility] 2020-05-31 2020-05-31 Office [facility] [id number] Univers 12:50:08 13:48:17 Visit Kelsy Lay [id number] [id number] [phone] [address] 2020-05-31 2020-05-31 [facility] [id number] Univers 13:00:00 13:00:00 KESLY [facility] 2020-03-25 2020-03-25 Outpatient [facility]LMLC [facility] [id number] [facility] 2020-03-12 2020-03-12 Outpatient [facility] [id number] [facility] 2020-03-03 2020-03-03 Outpatient STLMLC [facility] [id number] [facility] 2020-02-12 2020-02-12 Office [facility] [id number] Univers 09:19:29 09:59:12 Visit Megan Alireza [id number] [id number] [phone] [place] dical [facility] 188 [facility] 2020-02-12 2020-02-12 Outpatient R FRANCIS, [facility] [id number] Univers 09:15:00 09:15:00 MEGAN [id number] ity of [facility] 2020-02-12 2020-02-12 Outpatient R FRANCIS, [facility] [id number] Univers 09:15:00 09:15:00 MEGAN ity of [facility] 2020-02-05 2020-02-05 Outpatient R FRANCIS, [facility] [id number] Univers 14:30:00 14:30:00 MEGAN ity of [facility] 2020-02-03 2020-02-03 Outpatient R FRANCIS, [facility] [id number] Univers 14:30:00 14:30:00 MEGAN ity [facility] 2019-12-04 2019-12-04 Refill [facility] [id number] Univers 00:00:00 00:00:00 Jocelyn Lay [id number] [place]y [id number] [phone] [place]ical [address] 2019-12-02 2019-12-02 Refill Doctor [facility] [id number] Univers 00:00:00 00:00:00 UnassignedAlireza [id number] ity of [place] [id number] [phone] [place] dical [address] 2019-11-27 2019-11-27 [facility] [id number] Univers 00:00:00 00:00:00 Megan Lay [id number] i ty [id number] [phone] [place] dicmn [place]al [address] [place] [address] 2019-11-04 2019-11-04 Office [facility] [id number] Univers 15:39:29 16:22:04 Visit Megan Lay [id number] i [id number] [phone] [place] dical nal 377 [facility] 2019-11-04 2019-11-04 [facility] [id number] Univers 16:00:00 16:00:00 MEGAN itkatlin of [facility] 2019-10-24 2019-10-24 [facility] [id number] Univers 06:25:19 10:10:00 Encounter Megan Alireza [id number] [id number] [phone] [facility] [address] 2019-10-23 2019-10-23 Laboratory Only, Adc Test [facility] 1.2.840. 114 [id number] Univers 12:51:00 17:36:52 Only Casey Buckley [id number] [id number] [phone] [facility] [address] 2019-10-23 2019-10-[address] [facility] [id number] Univers 13:00:00 13:00:00 [id number] [facility] 2019-10-23 2019-10-23 Outpatient [facility] [id number] Univers 13:00:00 13:00:00 CASEY ity of [facility] 2019-10-23 2019-10-23 Orders Doctor BALTAZAR [id number] Univers 00:00:00 00:00:00 Only Unassigned, MICHAEL [id number] ity of [place] [facility] [id number] Pramod as [phone] [facility] [address] 2019-10-17 2019-10-17 Telephone [facility] 1.2.840.114 [id number] Univers 00:00:00 00:00:00 Megan Alireza [id number] [id number] [phone] [place] dical nal 377 [facility] 2019-08-18 2019-08-18 Telephone [facility] [id number] Univers 00:00:00 00:00:00 Jocelyn Lay [id number] [id number] [phone] [address] 2019-07-22 2019-07-22 Telephone [facility] [id number] Univers 00:00:00 00:00:00 Jocelyn Lay [id number] [id number] [phone] [address] 2019-07-14 2019-07-14 Telephone [facility] [id number] Univers 00:00:00 00:00:00 Jocelyn Lay [id number] [id number] [phone] [address] 2019-07-01 2019-07-01 Office Francis [facility] [id number] Univers 13:57:45 16:05:24 Visit Megan Lay [id number] i ty [id number] [phone] [address] 2019-07-01 2019-07-[address] [facility] [id number] Univers 14:00:00 14:00:00 MEGAN davis of [facility] 2019-07-01 2019-07-01 Orders Doctor DELANEY 1.2.840.114 [id number] Univers 00:00:00 00:00:00 Only Unassigned, MICHAEL [id number] ity of [place] [facility] [id number] Pramod as [phone] [address] 2019-05-28 2019-05-28 Office Deandra Griffith [facility] [id number] Univers 12:25:55 13:19:57 Visit Chad Lay [id number] [id number] [facility] [phone] W[place] dical nal [address] 2019-05-28 2019-05-28 Orders Doctor DELANEY 1.2.840.114 [id number] Univers 00:00:00 00:00:00 Only Unassigned, MICHAEL [id number] ity of [place] [facility] [id number] Pramod as [phone] [facility] [address] 2019-05-21 2019-05-21 [facility] Deandra Griffith [facility] [id number] Univers 12:21:00 23:59:00 Encounter [place] [id number] [id number] [phone] [facility] [address] 2019-05-21 2019-05-21 Orders Doctor DELANEY 1.2.840.114 [id number] Univers 00:00:00 00:00:00 Only Unassigned, MICHAEL [id number] ity of [place] [facility] [id number] Pramod as [phone] [address] Results Test Description Test Time Test Comments Results Result Comments Source POCT TEST 2020-05-31 19:33:00 Test Item Value Reference Range Interpretation Comme nts POCT PREG (test code = 1605) Negative On board controls acceptable with C Yes Line (test code = 3574) POCT PREG LOT # (test code = 3575) POCT PREG TEST DATE (test code = 3576) NEAL (test code = NEAL) accurate development and interpretation of all internal controls [facility] [id number] 19:33:00 Test Item Value Reference Range Interpretation Comments POCT PREG (test code Negative = 1605) On board controls Yes acceptable with C Line (test code = 3574) POCT PREG LOT # (test code = 3575) POCT PREG TEST DATE (test code = 3576) NEAL (test code = NEAL) accurate development and interpretation of all internal controls [facility] [id number] 19:33:00 Test Item Value Reference Range Interpretation Comments POCT PREG (test code Negative = 1605) On board controls Yes acceptable with C Line (test code = 3574) POCT PREG LOT # (test code = 3575) POCT PREG TEST DATE (test code = 3576) NEAL (test code = NEAL) accurate development and interpretation of all internal controls [facility] [id number] 11:50:00 Test Item Value Reference Range Interpretation Comments POCT PREG (test code = 1605) Negative On board controls acceptable with Yes C Line (test code = 3574) POCT PREG LOT # (test code = 3575) [id number] POCT PREG TEST DATE (test 2021-01-27 code = 3576) Lab Interpretation (test code = Normal 74264-6) [facility]ID NOW RAPID TESTING)2019-10-23 19:13:00 Test Item Value Reference Range Interpretation Comments SARS-CoV-2 Rapid ID NOW Not Detected Not Detected (test code = 58594-7) NEAL (test code = NEAL) ID NOW COVID-19 Assay is an isothermal nucleic acid amplification test intended for the qualitative detection of nucleic acid from SARS-CoV-2 viral RNA in nasopharyngeal (MOVE COORDINATOR) specimens. It is used under Emergency Use Authorization (EUA) by FDA. The limit of detection (LOD) of the assay is 125 Genome Equivalents/mL. A positive result is indicative of the presence of SARS-CoV-2 RNA. ?Clinical correlation with patient history and other diagnostic information is necessary to determine patient infection status. A negative (Not Detected) result does not preclude SARS-CoV-2 infection. In patients with clinical symptoms and other tests that are consistent with SARS-CoV-2 infection, negative results should be treated as presumptive negative and a new specimen should be tested with alternative PCR molecular test. Invalid: Please collect a new specimen for repeat patient testing if clinically indicated. Lab Interpretation Normal (test code = 76855-3) [facility] NOW RAPID TESTING)2019-10-23 19:13:00 Test Item Value Reference Range Interpretation Comments SARS-CoV-2 Rapid ID NOW Not Detected Not Detected (test code = 93426-8) NEAL (test code = NEAL) ID NOW COVID-19 Assay is an isothermal nucleic acid amplification test intended for the qualitative detection of nucleic acid from SARS-CoV-2 viral RNA in nasopharyngeal (MOVE COORDINATOR) specimens. It is used under Emergency Use Authorization (EUA) by FDA. The limit of detection (LOD) of the assay is 125 Genome Equivalents/mL. A positive result is indicative of the presence of SARS-CoV-2 RNA. ?Clinical correlation with patient history and other diagnostic information is necessary to determine patient infection status. A negative (Not Detected) result does not preclude SARS-CoV-2 infection. In patients with clinical symptoms and other tests that are consistent with SARS-CoV-2 infection, negative results should be treated as presumptive negative and a new specimen should be tested with alternative PCR molecular test. Invalid: Please collect a new specimen for repeat patient testing if clinically indicated. Lab Interpretation Normal (test code = 06950-9) [facility] [id number] 19:45:39Examination:BI DIAGNOSTIC MAMMOGRAM BILATERAL History:Patient is 49 year old and is seen for: ?Left breast pain. ?never had a mammogram and fam hx of breast cancer. Computer-aided detection (CAD) utilized. Comparisons : None available Findings:The breasts have scattered areas of fibroglandular density. There is no evidence of suspicious masses, calcifications, or other abnormal findings. Impression:No signs of malignancy. Recommendation:Annual mammographic follow-up - Bilateral BI-RADS Category: Both [facility]
[2021-08-15 23:26] LABS: Barbiturates NEGATIVE (NEGATIVE); Benzodiazepines NEGATIVE (NEGATIVE); Cocaine NEGATIVE (NEGATIVE); METHAMPHETAM NEGATIVE (NEGATIVE); Methadone NEGATIVE (NEGATIVE); Opiates NEGATIVE (NEGATIVE); Phencyclidine NEGATIVE (NEGATIVE); THC Cannibis NEGATIVE (NEGATIVE)
[2021-08-15 23:45] LABS: Absolute Lymphocytes (CBC) 2.3 K/uL (0.7-4.9); Hematocrit 39.8 % (36.0-45.0); Lymphocytes % 33.8 % (15.3-44.8); MPV 8.4 fL (7.6-11.3)
[2021-08-15 23:46] LABS: Protime INR 1.05
[2021-08-16] LABS: ALT/SGPT 20 U/L (12-78); AST/SGOT 9 U/L (15-37); Albumin 3.7 g/dL (3.4-5.0); Alkaline Phosphatase 84 U/L (45-117); BUN Blood Urea Nitrogen 13 mg/dL (7-18); Bicarbonate 24 mmol/L (21-32); Bilirubin Direct 0.1 mg/dL (0-0.2); Bilirubin Total 0.8 mg/dL (0.2-1.0); Glucose Level 102 mg/dL (74-106); Potassium 3.3 mmol/L (3.5-5.1); Protein, Total 7.6 g/dL (6.4-8.2); Sodium Level 139 mmol/L (136-145)
[2021-08-16 00:28] LABS: SARS-COV-2 RT PCR NEGATIVE (NEGATIVE)
[2021-08-16] MEDS ORDERED: NA CHLORIDE 0.9% 1,000 ML ONE (01:27)
[2021-08-16] MEDS ORDERED: POTASSIUM 25 MEQ EFFERV TAB ONE (01:27)
--- NOTE | 2021-08-16 14:38 | EDPHYS ---
Physician Documentation [facility] Name: Qi Romero Age: 51 yrs Sex: Female : 1970 Arrival Date: 08/15/2021 Time: 21:43 Bed 15 Private MD: ED Physician Chad Estes HPI: 08/15 22:00 This 51 yrs old Female presents to ER via Unassigned with complaints of cp Suicidal Ideation. 22:00 The patient presents to the emergency department with a history of a suicide gesture, cp where the patient took pills/medications, handful of OTC sleep aid medication Calms Forte and consumed a bottle of wine. 22:00 Onset: The symptoms/episode began/occurred today. Associated signs and symptoms: The cp patient has no apparent associated signs or symptoms. 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 Flu vaccine is not up to date. It has been more than one year since last vaccine. - Social history:: Smoking status: Patient reports the use of cigarette tobacco products, denies chronic smoking, but will smoke occasionally. ROS: 22:05 Constitutional: Negative for body aches, chills, fever, poor PO intake. cp 22:05 Eyes: Negative for injury, pain, redness, and discharge. cp 22:05 ENT: Negative for drainage from ear(s), ear pain, sore throat, difficulty swallowing, difficulty handling secretions. 22:05 Cardiovascular: Negative for chest pain. 22:05 Respiratory: Negative for cough, shortness of breath, wheezing. 22:05 Abdomen/GI: Negative for abdominal pain, nausea, vomiting, and diarrhea. 22:05 Neuro: Negative for altered mental status. 22:05 Psych: Positive for suicide gesture, Negative for auditory hallucinations, visual hallucinations. 22:05 All other systems are negative. Exam: 21:55 ECG was reviewed by the Attending Physician. cp 22:00 Constitutional: The patient appears in no acute distress, alert, awake, cp non-diaphoretic, non-toxic, well developed, well nourished. 22:00 Head/Face: Normocephalic, atraumatic. cp 22:00 Eyes: Periorbital structures: appear normal, Pupils: equal, round, and reactive to light and accomodation, Extraocular movements: intact throughout, Conjunctiva: normal, no exudate, no injection, Sclera: no appreciated abnormality, Lids and lashes: appear normal, bilaterally. 22:00 ENT: External ear(s): are unremarkable, Nose: is normal, Mouth: Lips: moist, Oral mucosa: pink and intact, moist, Posterior pharynx: Airway: no evidence of obstruction, patent. 22:00 Chest/axilla: Inspection: normal, Palpation: is normal, no crepitus, no tenderness. 22:00 Cardiovascular: Rate: tachycardic, Rhythm: regular, Edema: is not appreciated, JVD: is not appreciated. 22:00 Respiratory: the patient does not display signs of respiratory distress, Respirations: normal, no use of accessory muscles, labored breathing, is not present. 22:00 Abdomen/GI: Inspection: abdomen appears normal, Palpation: abdomen is soft and cp non-tender, in all quadrants. 22:00 Neuro: Orientation: to person, place \T\ time. Mentation: is normal, Motor: moves all cp fours, strength is normal, Sensation: is normal. Vital Signs: 21:40 BP 118 / 86; Pulse 107; Resp 16 S; Temp 98.9(O); Pulse Ox 100% on R/A; Weight 82.55 kg ag7 (R); Height 5 ft. 2 in. (157.48 cm); Pain 0/10; 08/16 00:30 BP 109 / 85 RA Supine (auto/); Pulse 98 MON; Resp 16 S; Pulse Ox 100% on R/A; Pain 0/10;ag7 06:35 BP 115 / 77; Pulse 97; Resp 18; Pulse Ox 99% on R/A; oe 07:53 BP 138 / 82; Pulse 90; Resp 18; Temp 98.8(O); Pulse Ox 99% on R/A; mh5 08/15 21:40 Body Mass Index 33.29 (82.55 kg, 157.48 cm) ag7 MDM: 08/15 21:50 Patient medically screened. cp 21:59 Other consultation: Poison control, at 22:00, monitor until clinical sober and have cp psych eval performed. 08/16 09:07 Differential diagnosis: Received phone call from [facility], they evaluated the patient [place] via telehealth, and advised that this is a high risk suicide recommends inpatient placement. Of note patient does not want to be placed in inpatient at this time, will proceed with involuntary placement. Data reviewed: vital signs, nurses notes. Counseling: I had a detailed discussion with the patient and/or guardian regarding: the historical points, exam findings, and any diagnostic results supporting the discharge/admit diagnosis, the presence of at least one elevated blood pressure reading (>120/80) during this emergency department visit, the need for outpatient follow up. Medical screen evaluation completed. EMTALA emergency medical condition absent. 14:35 ED course: Patient reports she is not suicidal and/or homicidal at this time and cp requests discharge to home. 08/15 21:50 Order name: Acetaminophen cp 08/15 21:50 Order name: Basic Metabolic Panel cp 08/15 21:50 Order name: CBC with Diff cp 08/15 21:50 Order name: ETOH Level; Complete Time: 00:57 cp 08/16 00:57 Interpretation: Reviewed. 08/15 21:50 Order name: Hepatic Function cp 08/15 21:50 Order name: PT-INR cp 08/15 21:50 Order name: Ptt, Activated cp 08/15 21:50 Order name: Salicylate cp 08/15 21:50 Order name: Urine Drug Screen cp 08/15 21:50 Order name: EKG; Complete Time: 21:53 cp 08/16 00:23 Order name: COVID-19/FLU A+B; Complete Time: 00:57 EDMS 08/16 05:01 Order name: ETOH Level ll3 08/15 21:50 Order name: EKG - Nurse/Tech; Complete Time: 04:38 cp 08/15 21:50 Order name: IV Saline Lock; Complete Time: 04:38 cp 08/15 21:50 Order name: Labs collected and sent; Complete Time: 04:38 cp 08/15 21:50 Order name: Suicide Precautions; Complete Time: 04:38 cp 08/15 21:50 Order name: Suicide Screening ([place]); Complete Time: 04:14 cp 08/15 21:50 Order name: Urine Dipstick-Ancillary (obtain specimen); Complete Time: 04:38 cp 08/15 21:50 Order name: Urine Test (obtain specimen); Complete Time: 04:39 cp 08/16 07:11 Order name: Diet Finger Food; Complete Time: 07:11 mh5 08/16 11:24 Order name: Diet Finger Food; Complete Time: 11:24 mh5 EC/18 21:55 Rate is 106 beats/min. Rhythm is regular. CA interval is normal. QRS interval is cp normal. QT interval is normal. Interpreted by me. Reviewed by me. Administered Medications: 08/16 01:34 Drug: NS 0.9% 1000 ml Route: IV; Rate: 1 bolus; Site: left antecubital; ag7 07:13 Follow up: Response: No adverse reaction; IV Status: Completed infusion; IV Intake: ll1 1000ml 01:35 Drug: Potassium Effervescent Tablet 50 mEq Route: PO; ag7 07:13 Follow up: Response: No adverse reaction ll1 Disposition Summary: 08/16/21 14:37 Discharge Ordered Location: Home cp Problem: new cp Symptoms: have improved cp Condition: Stable cp Diagnosis - Other depressive episodes cp Followup: cp - With: Private Physician - When: 1 - 2 days - Reason: Recheck today's complaints Discharge Instructions: - Discharge Summary Sheet cp - Major Depressive Disorder, Adult cp - Managing Depression, Adult cp Forms: - Medication Reconciliation Form cp - Thank You Letter cp - Antibiotic Education cp - Prescription Opioid Use cp Addendum: 08/18/2021 18:35 Co-signature as Attending Physician, Chad hannon a2 Signatures: Dispatcher [employer] EDMS Lasha Fisher PA PA cp Chad Estes MD MD ma2 Juanis Dunlap RN RN ag7 Ynes Roca RN ll1 Corrections: (The following items were deleted from the chart) 08/17 12:25 12:23 ED course: Patient reports she is not suicidal and/or homicidal at this time and cp requests discharge to home. cp
--- NOTE | 2021-08-16 14:38 | ER ---
Nurse's Notes [facility] Name: Qi Romero Age: 51 yrs Sex: Female : 1970 Arrival Date: 08/15/2021 Time: 21:43 Bed 15 Private MD: Diagnosis: Other depressive episodes Presentation: 08/15 21:40 Chief complaint: EMS states: EMS report patient attempted suicide with an over the ag7 counter sleep aide and a bottle of wine. Coronavirus screen: Client denies travel out of the [place] in the last 14 days. At this time, the client does not indicate any symptoms associated with coronavirus-19. Ebola Screen: Patient negative for fever greater than or equal to 101.5 degrees Fahrenheit, and additional compatible Ebola Virus Disease symptoms Patient denies exposure to infectious person. Patient denies travel to an Ebola-affected area in the 21 days before illness onset. Initial Sepsis Screen: Does the patient meet any 2 criteria? No. Patient's initial sepsis screen is negative. Does the patient have a suspected source of infection? No. Patient's initial sepsis screen is negative. Risk Assessment: Do you want to hurt yourself or someone else? Patient reports desire/thoughts of hurting themselves or someone else. Provider notified. Onset of symptoms was August 15, 2021. 21:40 Method Of Arrival: EMS: [facility] 21:40 Acuity: JOYA 2 ag7 [employer]: 08/16 00:48 LMP N/A - Irregular menses ag7 Historical: - Allergies: 08/15 23:08 No Known Allergies; ag7 - Home Meds: 23:08 Excedrin Migraine oral [Active]; ag7 - PMHx: 23:08 None; ag7 - PSHx: 23:08 section; ag7 - Immunization history:: Adult Immunizations unknown, Client reports having NOT received the Covid vaccine. Flu vaccine is not up to date. It has been more than one year since last vaccine. - Social history:: Smoking status: Patient reports the use of cigarette tobacco products, denies chronic smoking, but will smoke occasionally. Screenin/19 00:42 Abuse screen: Denies threats or abuse. Nutritional screening: No deficits noted. ag7 Tuberculosis screening: No symptoms or risk factors identified. Fall Risk No fall in past 12 months (0 pts). No secondary diagnosis (0 pts). IV access (20 points). Ambulatory Aid- None/Bed Rest/Nurse Assist (0 pts). Gait- Normal/Bed Rest/Wheelchair (0 pts) Mental Status- Oriented to own ability (0 pts). Total Alonso Fall Scale indicates No Risk (0-24 pts). Assessment: 08/15 21:40 General: Appears obese, Behavior is crying, drowsy, Smells of alcohol. Pain: Denies ag7 pain. Neuro: Level of Consciousness is lethargic, Oriented to none. Neuro: Patient verbalize suicidal ideation, the patient state, "She plans to hang herself because her hates her". Cardiovascular: Heart tones S1 S2 present Capillary refill < 3 seconds in bilateral fingers Patient's skin is warm and dry. Rhythm is regular. Respiratory: Airway is patent Trachea midline Respiratory effort is even, unlabored, Respiratory pattern is regular, symmetrical. GI: Abdomen is obese, Pt is actively vomiting red, clear 650 ml out emesis. 21:40 Reassessment: sitter at the bedside, poison control notified per MELL Page, no ag7 reccomendation. 22:40 Reassessment: No changes from previously documented assessment. ag7 08/16 00:00 Reassessment: Patient and/or family updated on plan of care and expected duration. Pain ag7 level reassessed. Patient is alert, oriented x 3, equal unlabored respirations, skin warm/dry/pink. sitter at bedside, at facility to check on patient, patient okay communication with . Patient denies pain at this time. 01:00 Reassessment: No changes from previously documented assessment. Patient and/or family ag7 updated on plan of care and expected duration. Pain level reassessed. 08:00 General: Appears in no apparent distress. Behavior is calm, cooperative, appropriate ll1 for age, Denies feeling suicidal or homicidal. Neuro: No deficits noted. Cardiovascular: No deficits noted. 09:00 Reassessment: No changes from previously documented assessment. Patient and/or family ll1 updated on plan of care and expected duration. Pain level reassessed. Patient is alert, oriented x 3, equal unlabored respirations, skin warm/dry/pink. 10:00 Reassessment: No changes from previously documented assessment. Patient and/or family ll1 updated on plan of care and expected duration. Pain level reassessed. Patient is alert, oriented x 3, equal unlabored respirations, skin warm/dry/pink. no longer having suicidal thoughts. C. Page informed. 11:00 Reassessment: No changes from previously documented assessment. Patient and/or family ll1 updated on plan of care and expected duration. Pain level reassessed. Patient is alert, oriented x 3, equal unlabored respirations, skin warm/dry/pink. 12:00 Reassessment: No changes from previously documented assessment. Patient and/or family ll1 updated on plan of care and expected duration. Pain level reassessed. Patient is alert, oriented x 3, equal unlabored respirations, skin warm/dry/pink. 13:00 Reassessment: No changes from previously documented assessment. Patient and/or family ll1 updated on plan of care and expected duration. Pain level reassessed. Patient is alert, oriented x 3, equal unlabored respirations, skin warm/dry/pink. 14:00 Reassessment: Patient appears in no apparent distress at this time. No changes from ll1 previously documented assessment. Patient and/or family updated on plan of care and expected duration. Pain level reassessed. Patient is alert, oriented x 3, equal unlabored respirations, skin warm/dry/pink. 14:43 Reassessment: No changes from previously documented assessment. Patient and/or family ll1 updated on plan of care and expected duration. Pain level reassessed. Patient is alert, oriented x 3, equal unlabored respirations, skin warm/dry/pink. Psych: 08/15 21:40 [place] Suicide Severity Screening: In the past month, have you wished you were ag7 or wished you could go to sleep and not wake up? Patient responds "yes." Based off the client's responses additional C-SSRS screening is required. "In the past month, have you actually had any thoughts of killing yourself?" Patient responds "yes." Based off the client's response additional [place] suicide severity screening questions to be further documented on paper forms. "In your lifetime, have you ever done anything, started to do anything, or prepared to do anything to end your life?" Patient responds "yes." Patient reports suicidal intent within 3 past months. Subjective: Patient's mood is sad, hopeless, Delusions are denied, Hallucinations are denied Having thoughts of suicide. Plan for suicide is "plan to hang self". Objective: Patient is cooperative, Speech is normal, Affect is flat. Interventions: Removed personal items and placed in bag. Patient placed in hospital gown. Searched person for dangerous items. Urine collected and sent for urine drug test. Belonging list filled out. Patient reassessed during use of restraints. Patient is physically safe. Patient's cardiac status is stable. Patient's respirations are even and unlabored. Patient assessed for signs of distress. Patient remains reasonably comfortable at this time. Safety Checks: Personal items have been removed. Door is open. No visitors are present at this time. sitter at the bedside. Patient uses Last use was 3 hours ago. Consultation: Psych computational geneticist notified of patients arrival. Commitment: Patient will be a voluntary commitment. Vital Signs: 21:40 BP 118 / 86; Pulse 107; Resp 16 S; Temp 98.9(O); Pulse Ox 100% on R/A; Weight 82.55 kg ag7 (R); Height 5 ft. 2 in. (157.48 cm); Pain 0/10; 08/16 00:30 BP 109 / 85 RA Supine (auto/); Pulse 98 MON; Resp 16 S; Pulse Ox 100% on R/A; Pain 0/10;ag7 06:35 BP 115 / 77; Pulse 97; Resp 18; Pulse Ox 99% on R/A; oe 07:53 BP 138 / 82; Pulse 90; Resp 18; Temp 98.8(O); Pulse Ox 99% on R/A; mh5 08/15 21:40 Body Mass Index 33.29 (82.55 kg, 157.48 cm) ag7 ED Course: 08/15 21:40 Patient has correct armband on for positive identification. Placed in gown. Bed in low ag7 position. sitter at the bedside. 21:43 Patient arrived in ED. oe 21:45 Lasha Fisher PA is PHCP. cp 21:46 Brendan Hernández MD is Attending Physician. cp 22:54 Nicole Diamond RN is Primary Nurse. vc1 23:08 Triage completed. ag7 23:20 Maintain EMS IV. Dressing intact. Good blood return noted. Site clean \\T\\ dry. Gauge \\T\\ ag 7 site: 20 L AC. 08/16 00:43 No provider procedures requiring assistance completed. Maintain EMS IV. Dressing ag7 intact. Good blood return noted. Site clean \\T\\ dry. Gauge \\T\\ site: . 00:43 Arm band placed on right wrist. ag7 06:27 contacted [facility] Crisis Line spoke to Terri to have a screener evaluate the mw2 patient. 07:11 Primary Nurse role handed off by Nicole Diamond RN ll1 07:11 Ynes Roca RN is Primary Nurse. ll1 07:58 Attending Physician role handed off by Brendan Hernández MD ma2 07:58 Chad Estes MD is Attending Physician. sd2 08:20 faxed chart to [facility]. bd 14:43 IV discontinued, intact, bleeding controlled, No redness/swelling at site. Pressure ll1 dressing applied. Administered Medications: 01:34 Drug: NS 0.9% 1000 ml Route: IV; Rate: 1 bolus; Site: left antecubital; ag7 07:13 Follow up: Response: No adverse reaction; IV Status: Completed infusion; IV Intake: ll1 1000ml 01:35 Drug: Potassium Effervescent Tablet 50 mEq Route: PO; ag7 07:13 Follow up: Response: No adverse reaction ll1 Intake: 07:13 IV: 1000ml; Total: 1000ml. ll1 Outcome: 14:37 Discharge ordered by . cp 14:43 Discharged to home ambulatory. ll1 14:43 Condition: stable 14:43 Discharge instructions given to patient, family, Instructed on discharge instructions, follow up and referral plans. Demonstrated understanding of instructions, follow-up care. 14:44 Patient left the ED. ll1 Signatures: Lindsay Salinas bd Lasha Fisher PA PA cp Espinosa, Orlando oe Martinez, [facility] Chad Estes MD MD sd2 Jacinto Song 2 Ynes Roca RN RN ll1 Nicole Diamond RN RN 1 Juanis Dunlap RN RN ag7 Corrections: (The following items were deleted from the chart) 08/15 23:22 21:40 Acuity: JOYA 3 ag7 ag7
[2021-08-16 19:22] VITALS: O2SAT 99
[2021-08-16 19:24] VITALS: BP 138/82; TEMP 98.8
--- NOTE | 2021-08-17 08:11 | EKG ---
Test Date: 2021-08-15 Test Time: 21:49:13 Palliative Care Specialist: BINU MEASUREMENT RESULTS: Intervals: Rate: 106 AK: 176 QRSD: 76 QT: 334 QTc: 443 [place]: P: 51 AK: 176 QRS: 89 T: 33 INTERPRETIVE STATEMENTS: Sinus tachycardia Cannot rule out Inferior infarct, age undetermined Cannot rule out Anterior infarct, age undetermined Abnormal ECG Compared to ECG 01/07/2016 12:20:25 Myocardial infarct finding now present Sinus rhythm no longer present Electronically Signed On 08-17-21 08:07:16 CDT by Franco Snow
[2021-08-19 13:12] LABS: Urine Blood Trace-lysed (Negative); Urine Glucose Negative (Negative); Urine Protein Negative (Negative)
== END 2021-08-16 14:44 | disposition home or self-care (01) ==
LOC: ER 21:42
DX: T50.992A Poisoning by other drugs, medicaments and biological substances, intentional self-harm, initial encounter (principal); F32.89 Other specified depressive episodes; F17.210 Nicotine dependence, cigarettes, uncomplicated
CPT/HCPCS: 0240U; 36415; 80048; 80076; 80307; 80320; 80329; 81003; 85025; 85610; 85730; 93005; 96360; 96361; 99285; J7030

== ENCOUNTER 2024-01-24 06:00 | Observation (INO) | payer OTHER ==
--- OUTSIDE RECORDS SUMMARY | 2024-01-24 06:04 | XMS REPORT | Continuity of Care Document ---
Author Name Unknown Address [address] [facility] [address] [place] [address] [facility] Address [address] [facility] [address] [place] [address] Care Team Providers Care Sales Market Leader Name Role Phone Angy Veliz Primary Care Physician [phone] Aixa Cortez Attending Clinician Unavailable Angy Veliz L Attending Clinician Unavailable MEGAN BLANCO Attending Clinician Unavailable KUSH MORILLO Attending Clinician Unavailable KUSH MORILLO Attending Clinician Unavailable Kush Morillo MD Attending Clinician [phone] Doctor Unassigned, [place] Attending Clinician U LALA Fried Attending Clinician Unavailable MOSES SPENCE Attending Clinician Unavailable MOSES SPENCE Attending Clinician Unavailable [email or web address] Attending Clinician UnavailDuke Meek DO Attending Clinician [phone] Kelsy Starks PA-C Attending Clinician [phone] KELSY STARKS Attending Clinician Unavailable Megan Blanco MD Attending Clinician Gramm WRAPPER AND PRESERVERJocelyn A Attending Clinician [phone] Doctor Unassigned, [place] Attending Clinician U navailable Only, Adc Test Attending Clinician Unavailable Casey Buckley MD Attending Clinician [phone] CASEY BUCKLEY Attending Clinician Unavailable Nacho BEAN, Deandra Bonilla Attending Clinician [phone] MEGAN BLANCO Admitting Clinician Unavailable MOSES SPENCE Admitting Clinician Unavailable [email or web address] Admitting Clinician UnavailMegan Guzman MD Admitting Clinician [phone] Payers Payer Name Policy Type Policy Number Effective Date Expirati on Date Source [employer] O [id number] 2016 00:00:00 [id number] 2023 00:00:00 [facility] [id number] 2017 00:00:00 [facility] Problems Condition Name Condition Details Condition Category Status Onset Date Resolution Date Last Treatment Date Treating Clinician Comments Source Indigestio n Indigestio n Disease Active 07-01 00:00: 00 Overview: Formattin g of this note might be different from the original. Added automatic ally from request for surgery [id number] [facility] Obesity (BMI 30-39.9) Obesity (BMI 30-39.9) Disease Active 05-28 00:00: 00 [facility] Stress incontinen ce Stress incontinen ce Disease Active 05-28 00:00: 00 [facility] Family history of breast cancer in mother Family history of breast cancer in mother Disease Active 05-21 00:00: 00 [facility] [id number] Vitamin D deficiency Problem Active [facility] Migraine Migraines Problem Active [facility] Gastroesop hageal reflux disease Reflux Problem Active [facility] [id number] Adult general medical exam Problem Active [facility] [id number] Menopausal and postmenopa usal disorder Problem Common [facility] [id number] Mixed hyperlipid emia Problem [facility] [id number] Smokes 5 cigarettes or less per day Problem [facility] [id number] Irregular periods/me nstrual cycles Problem Active [facility] Allergies, Adverse Reactions, Alerts Allergy Name Allergy Type Status Severity Reaction(s) Onset Date Inactive Date Treating Clinician Comments Source NO KNOWN ALLERGIE S Drug Class Active [facility] Social History Social Habit Start Date Stop Date Quantity Comments Source Exposure to SARS-CoV-2 (event) Not sure [facility] Sexual orientation [facility] History of Tobacco Use Current Smoker [facility] Sex Assigned At [facility] Alcoholic beverage intake 2024-01-22 00:00:00 2024-01-22 00:00:00 Current drinker of alcohol (finding) [facility] Alcohol intake 2020-05-31 00:00:00 2020-05-31 00:00:00 Current drinker of alcohol (finding) [facility] History of Social function 2019-10-24 00:00:00 2019-10-24 00:00:[address] [facility] Tobacco use and exposure 2017-05-21 00:00:00 2017-05-21 00:00:00 Former smokeless tobacco user [facility] Alcohol Comment 2017-05-21 00:00:00 2017-05-21 00:00:[address] [facility] Smoking Status Start Date Stop Date Source Current Smoker 2023-03-30 00:00:00 [facility] Never Smoker [facility] Ex-smoker 2017-05-21 00:00:00 2017-05-21 00:00:00 [facility] Medications Ordered Medication Name Filled Medication Name Start Date Stop Date Current Medication? Ordering Clinician Indication Dosage Frequency Signature (SIG) Comments Components Source LORazepam (ATIVAN) injection 1 mg 01-22 04:30: 00 01-22 04:20 :00 No 1mg 1 mg, Slow IV Push, ONCE, 1 dose, On Sun01/22/24 at 2330, STAT [facility] NaCl 0.9% (NS) IV infusion 1,000 mL 01-22 04:15: 00 Yes 1000mL at 999 mL/hr, Intravenou s, CONTINUOUS , Starting on Sun01/22/24 at 2315, Until Discontinu ed, Routine [facility] diphenhydrA MINE (BENADRYL) injection 25 mg 01-22 04:00: 00 01-22 03:50 :00 No 25mg 25 mg, Slow IV Push, ONCE, 1 dose, On Sun01/22/24 at 2300, STAT [facility] methocarbam oL 500 mg tablet 10-25 00:00: 00 Yes [id number] 500mg Take 1 tablet by mouth 4 (four) times daily. [facility] naproxen 500 mg tablet 10-25 00:00: 00 11-10 04:59 :00 Yes [id number] 500mg Take 1 tablet by mouth in the morning and 1 tablet in the evening. Take with meals. Do all this for 15 days. [facility] Ativan 0.5 MG Ativan 0.5 MG 07-21 00:00: 00 No Ativan 0.5 MG Ativan 0.5 MG Ativan 0.5 MG 07-21 00:00: 00 No Ativan 0.5 MG metroNIDAZO LE 500 mg tablet 06-02 00:00: 00 Yes [id number] 500mg Take 1 tablet by mouth every 12 (twelve) hours. [facility] fluconazole (DIFLUCAN) 150 mg tablet 06-02 00:00: 00 06-03 05:59 :00 No [id number] 150mg Take 1 tablet by mouth once now for 1 dose. [facility] mv-mn/iron/ folic acid/herb 190 (VITAMIN D3 COMPLETE ORAL) 05-31 19:02: 00 05-31 00:00 :00 No Take by mouth. [facility] Meclizine HCl 25 MG Meclizine HCl 25 MG 2019-04 00:00: 00 No 1{table t_as_ne eded} Meclizine HCl 25 MG Meclizine HCl 25 MG Meclizine HCl 25 MG 2019-04 1-13 00:00: 00 No 1{table t_as_ne eded} Meclizine HCl 25 MG mv-mn/iron/ folic acid/herb 190 (VITAMIN D3 COMPLETE ORAL) 2019-04 0-15 14:27: 05 Yes Take by mouth. [facility] pantoprazol e 40 mg EC tablet 8-04 00:00: 00 Yes [id number] 40mg Take 1 tablet by mouth daily. [facility] amoxicillin 500 mg capsule 11-03 00:00: 00 05-31 00:00 :00 No [id number] 1000mg Take 2 capsules by mouth 2 (two) times daily. [facility] metroNIDAZO LE (FLAGYL) 500 mg tablet 11-03 00:00: 00 05-31 00:00 :00 No [id number] 500mg Take 1 tablet by mouth 2 (two) times daily. [facility] Bismuth Subsalicyla te (PEPTO-BISM OL MAX ST) 525 mg/15 mL suspension 11-03 00:00: 00 05-31 00:00 :00 No [id number] 15mL Take 15 mL by mouth 4 (four) times daily. [facility] mv-mn/iron/ folic acid/herb 190 (VITAMIN D3 COMPLETE ORAL) 10-23 15:12: 24 Yes Take by mouth. [facility] water for irrigation irrigation solution 10-23 12:35: 00 Yes PRN, Starting Sun10/24/19 at 0735, Until Discontinu ed, Routine, Intra-op [facility] simethicone (GAS RELIEF (SIMETHICON E)) 40 mg/0.6 mL drops 10-23 12:35: 00 Yes PRN, Starting Sun10/24/19 at 0735, Until Discontinu ed, Routine, Intra-op [facility] lactated ringers IV infusion 1,000 mL 10-23 11:45: 00 10-23 11:49 :00 No 1000mL at 20 mL/hr, 1,000 mL, IV Infusion, ONCE, 1 dose, Sun10/24/19 at 0645, Routine, DSU Pre-op [facility] pantoprazol e 40 mg EC tablet 10-23 00:00: 00 11-26 00:00 :00 No [id number] 40mg Take 1 tablet by mouth daily. [facility] peg-electro lyte soln 236-22.74-6 .74 -5.86 gram solution 06-30 00:00: 00 10-23 00:00 :00 No Take as directed [facility] isoniazid 300 mg tablet 05-28 19:58: 41 05-28 00:00 :00 No 300mg Take 300 mg by mouth daily. [facility] norgestimat e-ethinyl estradiol 0.25-35 mg-mcg per tablet 05-28 00:00: 00 05-31 00:00 :00 No [id number] 1{tbl} Take 1 tablet by mouth daily. [facility] mometasone 50 mcg/actuati on nasal spray 05-04 00:00: 00 Yes [facility] norgestimat e-ethinyl estradiol 0.25-35 mg-mcg per tablet 2018-04 00:00: 00 05-28 00:00 :00 No [id number] 1{tbl} Take 1 tablet by mouth daily. [facility] mv-mn/iron/ folic acid/herb 190 (VITAMIN D3 COMPLETE ORAL) 05-29 19:16: 52 Yes Take by mouth. [facility] isoniazid 300 mg tablet 05-29 19:16: 50 Yes 300mg Take 300 mg by mouth daily. [facility] Valtrex 1 GM Valtrex 1 GM 11-01 00:00: 00 No 1{table t} TID Valtrex 1 GM Valtrex 1 GM Valtrex 1 GM 11-01 00:00: 00 No 1{table t} TID Valtrex 1 GM Vitamin D-3 1000 UNIT Vitamin D-3 1000 UNIT No 2{capsu le} BID Vitamin D-3 1000 UNIT Fish Oil 1000 MG Fish Oil 1000 MG No 1{capsu le} BID Fish Oil 1000 MG Multi Vitamin Multi Vitamin No Multi Vitamin Fish Oil 1000 MG Fish Oil 1000 MG No 1{capsu le} BID Fish Oil 1000 MG Multi Vitamin Multi Vitamin No Multi Vitamin Immunizations Ordered Immunization Name Filled Immunization Name Date Status Comments Source Influenza Virus Vaccine Quad .5 mL IM 6+ MO 2019-05-28 00:00:[address] [facility] TDAP (ADACEL) VACCINE 2019-05-28 00:00:[address] [facility] Influenza Virus Vaccine Quad .5 mL IM 6+ MO 2019-05-28 00:00:[address] [facility] TDAP (ADACEL) VACCINE 2019-05-28 00:00:[address] [facility] Influenza Virus Vaccine Quad .5 mL IM 6+ MO 2019-05-28 00:00:[address] [facility] TDAP (ADACEL) VACCINE 2019-05-28 00:00:[address] [facility] Influenza Virus Vaccine Quad .5 mL IM 6+ MO 2019-05-28 00:00:[address] [facility] TDAP (ADACEL) VACCINE 2019-05-28 00:00:[address] [facility] Influenza Virus Vaccine Quad .5 mL IM 6+ MO 2019-05-28 00:00:[address] [facility] TDAP (ADACEL) VACCINE 2019-05-28 00:00:[address] [facility] Influenza Virus Vaccine Quad .5 mL IM 6+ MO 2019-05-28 00:00:[address] [facility] TDAP (ADACEL) VACCINE 2019-05-28 00:00:[address] [facility] Influenza Virus Vaccine Quad .5 mL IM 6+ MO 2019-05-28 00:00:[address] [facility] TDAP (ADACEL) VACCINE 2019-05-28 00:00:[address] [facility] Influenza Virus Vaccine Quad .5 mL IM 6+ MO 2019-05-28 00:00:[address] [facility] TDAP (ADACEL) VACCINE 2019-05-28 00:00:[address] [facility] Influenza Virus Vaccine Quad .5 mL IM 6+ MO 2019-05-28 00:00:[address] [facility] TDAP (ADACEL) VACCINE 2019-05-28 00:00:[address] [facility] Influenza Virus Vaccine Quad .5 mL IM 6+ MO 2019-05-28 00:00:[address] [facility] TDAP (ADACEL) VACCINE 2019-05-28 00:00:[address] [facility] Influenza Virus Vaccine Quad .5 mL IM 6+ MO 2019-05-28 00:00:[address] [facility] TDAP (ADACEL) VACCINE 2019-05-28 00:00:[address] [facility] Influenza Virus Vaccine Quad .5 mL IM 6+ MO 2019-05-28 00:00:[address] [facility] TDAP (ADACEL) VACCINE 2019-05-28 00:00:[address] [facility] Influenza Virus Vaccine Quad .5 mL IM 6+ MO 2019-05-28 00:00:[address] [facility] TDAP (ADACEL) VACCINE 2019-05-28 00:00:[address] [facility] Influenza Virus Vaccine Quad .5 mL IM 6+ MO 2019-05-28 00:00:[address] [facility] TDAP (ADACEL) VACCINE 2019-05-28 00:00:[address] [facility] Influenza Virus Vaccine Quad .5 mL IM 6+ MO 2019-05-28 00:00:[address] [facility] TDAP (ADACEL) VACCINE 2019-05-28 00:00:[address] [facility] Influenza Virus Vaccine Quad .5 mL IM 6+ MO 2019-05-28 00:00:[address] [facility] TDAP (ADACEL) VACCINE 2019-05-28 00:00:[address] [facility] Influenza Virus Vaccine Quad .5 mL IM 6+ MO 2019-05-28 00:00:[address] [facility] TDAP (ADACEL) VACCINE 2019-05-28 00:00:[address] [facility] Influenza Virus Vaccine Quad .5 mL IM 6+ MO 2019-05-28 00:00:[address] [facility] TDAP (ADACEL) VACCINE 2019-05-28 00:00:[address] [facility] Influenza Virus Vaccine Quad .5 mL IM 6+ MO 2019-05-28 00:00:[address] [facility] TDAP (ADACEL) VACCINE 2019-05-28 00:00:[address] [facility] Influenza Virus Vaccine Quad .5 mL IM 6+ MO 2019-05-28 00:00:[address] [facility] TDAP (ADACEL) VACCINE 2019-05-28 00:00:[address] [facility] Influenza Virus Vaccine Quad .5 mL IM 6+ MO 2019-05-28 00:00:[address] [facility] TDAP (ADACEL) VACCINE 2019-05-28 00:00:[address] [facility] Influenza Virus Vaccine Quad .5 mL IM 6+ MO 2019-05-28 00:00:[address] [facility] TDAP (ADACEL) VACCINE 2019-05-28 00:00:[address] [facility] Influenza Virus Vaccine Quad .5 mL IM 6+ MO 2019-05-28 00:00:[address] [facility] TDAP (ADACEL) VACCINE 2019-05-28 00:00:[address] [facility] Influenza Virus Vaccine Quad .5 mL IM 6+ MO 2019-05-28 00:00:[address] [facility] TDAP (ADACEL) VACCINE 2019-05-28 00:00:[address] [facility] Influenza Virus Vaccine Quad .5 mL IM 6+ MO 2019-05-28 00:00:[address] [facility] TDAP (ADACEL) VACCINE 2019-05-28 00:00:[address] [facility] Influenza Virus Vaccine Quad .5 mL IM 6+ MO 2019-05-28 00:00:[address] [facility] TDAP (ADACEL) VACCINE 2019-05-28 00:00:[address] [facility] Influenza Virus Vaccine Quad .5 mL IM 6+ MO 2019-05-28 00:00:[address] [facility] TDAP (ADACEL) VACCINE 2019-05-28 00:00:[address] [facility] Influenza Virus Vaccine Quad .5 mL IM 6+ MO 2019-05-28 00:00:[address] [facility] TDAP (ADACEL) VACCINE 2019-05-28 00:00:[address] [facility] Influenza Virus Vaccine Quad .5 mL IM 6+ MO (FLUZONE/FLULAVAL/F LUARIX) Unknown Completed [facility] TDAP (ADACEL) VACCINE Unknown Completed [facility] Influenza Virus Vaccine Quad .5 mL IM 6+ MO (FLUZONE/FLULAVAL/F LUARIX) Unknown Completed [facility] TDAP (ADACEL) VACCINE Unknown Completed [facility] Influenza Virus Vaccine Quad .5 mL IM 6+ MO (FLUZONE/FLULAVAL/F LUARIX) Unknown Completed [facility] TDAP (ADACEL) VACCINE Unknown Completed [facility] Vital Signs Vital Name Observation Time Observation Value Comments S ource Systolic blood pressure 2024-01-23 07:08:00 113 mm[Hg] [facility] Diastolic blood pressure 2024-01-23 07:08:00 79 mm[Hg] [facility] Heart rate 2024-01-23 07:08:00 92 /min [facility] Respiratory rate 2024-01-23 07:08:00 24 /min [facility] Oxygen saturation in Arterial blood by Pulse oximetry 2024-01-23 07:08:00 97 /min [facility] Body temperature 2024-01-23 03:04:[address] [facility] Body height 2024-01-23 03:04:00 157.5 cm [facility] Body weight 2024-01-23 03:04:00 77.111 kg [facility] BMI 2024-01-23 03:04:00 31.09 kg/m2 [facility] Systolic blood pressure 2023-10-26 19:01:00 119 mm[Hg] [facility] Diastolic blood pressure 2023-10-26 19:01:00 81 mm[Hg] [facility] Heart rate 2023-10-26 19:01:00 78 /min [facility] Body temperature 2023-10-26 19:01:[address] [facility] Respiratory rate 2023-10-26 19:01:00 16 /min [facility] Oxygen saturation in Arterial blood by Pulse oximetry 2023-10-26 19:01:00 99 /min [facility] Body height 2023-10-26 17:26:00 157.5 cm [facility] Body weight 2023-10-26 17:26:00 72.576 kg [facility] BMI 2023-10-26 17:26:00 29.26 kg/m2 [facility] height 2022-11-27 09:00:00 63 [in_i] [facility] weight 2022-11-27 09:00:00 180 [lb_av] [facility] temperature 2022-11-27 09:00:00 97.1 [degF] [facility] bmi 2022-11-27 09:00:00 31.88 kg/m2 [facility] oximetry 2022-11-27 09:00:00 99 % [facility] respiratory rate 2022-11-27 09:00:00 16 /min [facility] blood pressure systolic 2022-11-27 09:00:00 132 mm[Hg] [facility] blood pressure diastolic 2022-11-27 09:00:00 78 mm[Hg] [facility] height 2022-10-12 15:00:00 63 [in_i] [facility]mo n [facility] weight 2022-10-12 15:00:00 187 [lb_av] [facility] bmi 2022-10-12 15:00:00 33.12 kg/m2 [facility] Systolic blood pressure 2020-05-31 19:20:00 106 mm[Hg] [facility] Diastolic blood pressure 2020-05-31 19:20:00 66 mm[Hg] [place] [facility] Heart rate 2020-05-31 19:20:00 77 /min [facility] Body temperature 2020-05-31 19:20:[address] [facility] Respiratory rate 2020-05-31 19:20:00 16 /min [facility] Body height 2020-05-31 19:20:00 157.5 cm [facility] 2020-05-31 19:20:00 91.989 kg [facility] BMI 2020-05-31 19:20:00 37.09 kg/m2 [facility] height 2020-03-12 11:20:00 63 [in_i] [facility]mo n [facility] weight 2020-03-12 11:20:00 194.6 [lb_av] Co mmon [facility] temperature 2020-03-12 11:20:00 97.7 [degF] [facility] bmi 2020-03-12 11:20:00 34.47 kg/m2 [facility] oximetry 2020-03-12 11:20:00 96 % [facility] respiratory rate 2020-03-12 11:20:00 16 /min [facility] blood pressure systolic 2020-03-12 11:20:00 134 mm[Hg] [facility] blood pressure diastolic 2020-03-12 11:20:00 76 mm[Hg] [facility] Systolic blood pressure 2020-02-12 14:26:00 103 mm[Hg] [facility] Diastolic blood pressure 2020-02-12 14:26:00 68 mm[Hg] [facility] Heart rate 2020-02-12 14:26:00 69 /min [facility] temperature 2020-02-12 14:26:[address] [facility] Respiratory rate 2020-02-12 14:26:00 16 /min [facility] Body height 2020-02-12 14:26:00 157.5 cm [facility] Body weight 2020-02-12 14:26:00 88.814 kg [facility] BMI 2020-02-12 14:26:00 35.81 kg/m2 [facility] Systolic blood pressure 2019-11-04 21:02:00 117 mm[Hg] [place] [facility] Diastolic blood pressure 2019-11-04 21:02:00 73 mm[Hg] [facility] Heart rate 2019-11-04 21:02:00 73 /min [facility] Body temperature 2019-11-04 21:02:[address] [facility] Respiratory rate 2019-11-04 21:02:00 18 /min [facility] Body weight 2019-11-04 21:02:00 90.175 kg [facility] BMI 2019-11-04 21:02:00 36.35 kg/m2 [facility] Systolic blood pressure 2019-10-24 14:05:00 112 mm[Hg] [facility] Diastolic blood pressure 2019-10-24 14:05:00 74 mm[Hg] [facility] Heart rate 2019-10-24 14:05:00 75 /min [facility] Respiratory rate 2019-10-24 14:05:00 16 /min [facility] Oxygen saturation in Arterial blood by Pulse oximetry 2019-10-24 14:05:00 100 /min [facility] Body temperature 2019-10-24 11:36:[address] [facility] Body weight 2019-10-09 20:44:00 90.7 kg [facility] BMI 2019-10-09 20:44:00 36.56 kg/m2 [facility] Body height 2019-09-08 14:40:00 157.5 cm [facility] Systolic blood pressure 2019-07-01 20:05:00 108 mm[Hg] [facility] Diastolic blood pressure 2019-07-01 20:05:00 77 mm[Hg] [facility] Heart rate 2019-07-01 20:05:00 81 /min [facility] Body temperature 2019-07-01 20:05:[address] [facility] Respiratory rate 2019-07-01 20:05:00 18 /min [facility] Body weight 2019-07-01 20:05:00 91.082 kg [facility] BMI 2019-07-01 20:05:00 36.73 kg/m2 [facility] Systolic blood pressure 2019-05-28 18:55:00 123 mm[Hg] [place] [facility] Diastolic blood pressure 2019-05-28 18:55:00 75 mm[Hg] [facility] Heart rate 2019-05-28 18:55:00 74 /min [facility] Body temperature 2019-05-28 18:55:[address] [facility] Respiratory rate 2019-05-28 18:55:00 18 /min [facility] Body height 2019-05-28 18:55:00 157.5 cm [facility] Body weight 2019-05-28 18:55:00 92.534 kg [facility] BMI 2019-05-28 18:55:00 37.31 kg/m2 [facility] Procedures Procedure Date / Time Performed Performing Clinician Source URINE DRUG (IMMUNOASSAY) - COMPREHENSIVE DRUG SCREEN 2024-01-23 04:15:[address] [facility] URINALYSIS 2024-01-23 04:15:00 Kush Morillo [facility] POCT TEST 2024-01-23 04:15:[address] [facility] CREATINE KINASE 2024-01-23 03:35:00 [facility] THYRO[facility]IMUL[facility] HORMONE 2024-01-23 03:35:[address] [facility] COMP. METABOLIC PANEL ([id number]) 2024-01-23 03:35:[address] [facility] SALICYLATE 2024-01-23 03:35:00 Kush Morillo [facility] ETHANOL 2024-01-23 03:35:00 Kush Morillo [facility] CBC WITH DIFF 2024-01-23 03:35:00 Kush Morillo [facility] [facility] WHOLE BLO[facility] 2024-01-23 03:35:[address] [facility] CT CERVICAL SPINE WO CONTRAST 2023-10-26 18:17:[address] [facility] CT THORACIC SPINE WO CONTRAST 2023-10-26 18:17:[address] [facility] POCT TEST 2020-05-31 19:33:[address] [facility] COLONOSCOPY (ENDO) 2019-10-24 12:55:08 [facility] 2019-10-24 11:55:34 Angy Veliz [facility] POCT TEST 2019-10-24 11:47:[address] [facility] COVID-19 (ID NOW RAPID TESTING) 2019-10-23 17:56:[address] [facility] NOTICE OF PRIVACY PRACTICES 2019-10-23 05:01:00 Doctor Unassigned, [place] [facility] ASSIGNMENT OF BENEFITS 2019-07-01 19:56:25 Docto r Unassigned, [place] [facility] TDAP (ADACEL) IMMUNIZATION 2019-05-28 19:25:[address] [facility] FLU VACC ([id number]), 6+ MONTHS, IM, QUAD 2019-05-28 19:25:[address] [facility] NO SHOW OR MISSED APPOINTMENT POLICY ACKNOWLEDGEMENT 2019-05-28 18:25:08 Doctor Unassigned, [place] [facility] BI DIAGNOSTIC MAMMOGRAM BILATERAL 2019-05-21 18:58:[address] [facility] ASSIGNMENT OF BENEFITS 2019-05-21 18:20:15 Docto r Unassigned, [place] [facility] Encounters Start Date/Time End Date/Time Encounter Type Admission Type Attending Clinicians Care Facility Care Department Encounter ID Source 2023-05-07 10:42:00 Outpatient CortezAixa alexandra [facility] [id number] [facility] 2023-03-29 08:17:00 Outpatient CortezAixa alexandra [facility] [id number] [facility] 2022-11-23 10:08:00 Outpatient DanaAixa [facility] [id number] [facility] 2022-10-09 13:30:00 Outpatient Aixa Cortez [facility] STL[facility] [id number] [facility] 2022-09-08 13:24:00 Outpatient Aixa Cortez STL[facility] STL[facility]C [id number] [facility] 2022-09-07 15:26:00 Outpatient Aixa Cortez STL[facility] STL[facility]C [id number] [facility] 2022-09-05 15:32:00 Outpatient Aixa Cortez STLMLC STL[facility]C [id number] [facility] 2022-07-06 15:30:00 Outpatient STLMLC STL[facility]C [id number] [facility] 2021-11-15 14:20:01 Outpatient Jose Alfredo, Na STLMLC STLMLC [id number] [facility] 2021-05-25 14:13:01 Outpatient Jose Alfredo, Na STLMLC STLMLC [id number] [facility] 2021-05-25 12:04:05 Outpatient Jose Alfrdeo Na STLMLC STLMLC [id number] [facility] 2021-02-24 12:36:36 Outpatient MEGAN PICKERING [facility] RENNY [id number] [facility] 2024-01-22 21:59:00 2024-01-23 02:47:00 Emergency X KUSH MORILLO WAKILI [facility] ERT [id number] [facility] 2024-01-22 21:59:00 2024-01-23 02:47:00 Emergency Kush Morillo [facility] 1.2.840.114 350.1.13.10 4.2.7.2.686 [id number] [facility] 2023-11-04 00:00:00 2023-12-08 18:22:46 Patient Secure Msg Doctor Unassigned, [place] Doctor Unassigned, [place] [facility] 1..840.114 350.1.13.10 4.2.7.2.686 [id number] [facility] 2023-11-05 13:00:00 2023-11-05 13:00:00 Outpatient LALA CARSON [facility] [id number] [facility] 2023-10-26 12:27:00 2023-10-26 14:51:00 Emergency X MOSES SPENCE MOSES [facility] ERT [id number] [facility] 2023-10-26 12:27:00 2023-10-26 14:51:00 Emergency Moses Spence [facility] 1..840.114 350.1.13.10 4.2.7.2.686 [id number] [facility] 2023-02-28 00:00:00 2023-02-28 00:00:00 Outpatient GC_GCBZW_Ka amparo_S [facility] [id number] [facility] 2022-11-27 00:00:00 2022-11-27 00:00:00 PREV VISIT EST AGE 40-64 STLMLC STLMLC [id number] [facility] 2022-10-12 00:00:00 2022-10-12 00:00:00 OFFICE VISIT ESTAB PT LEVEL 3 STLMLC STLMLC [id number] [facility] 2020-07-21 00:00:00 2020-07-21 00:00:00 (TEL) STLMLC STLMLC [id number] [facility] 2020-07-15 00:00:00 2020-07-15 00:00:00 Patient Outreach Duke Sidhu [facility] 1..840.114 350.1.13.10 4.2.7.2.686 [id number] [facility] 2020-06-02 00:00:00 2020-06-02 00:00:00 Case Management [facility]elsy [facility]arks [facility] 1.2.840.114 350.1.13.10 4.2.7.2.686 [id number] [facility] 2020-06-02 00:00:00 2020-06-02 00:00:00 Telephone Kelsy Starks [facility] 1.2.840.114 350.1.13.10 4.2.7.2.686 [id number] [facility] 2020-06-01 14:15:00 2020-06-01 14:15:00 Outpatient R [facility] [id number] [facility] 2020-05-31 12:50:08 2020-05-31 13:48:17 Office Visit Kelsy Starks [facility] 1.2.840.114 350.1.13.10 4.2.7.2.686 [id number] [facility] 2020-05-31 13:00:00 2020-05-31 13:00:00 [facility] [id number] [facility] 2020-03-25 00:00:00 2020-03-25 00:00:00 (TEL) [facility] [id number] [facility] 2020-03-12 00:00:00 2020-03-12 00:00:00 (WELLNESS) Wellness Visit [facility] [id number] [facility] 2020-03-03 00:00:00 2020-03-03 00:00:00 (TEL) [facility] STLC [id number] [facility] 2020-02-12 09:19:29 2020-02-12 09:59:12 Office Visit BlancoMegan estrada [facility] Building 1.2.840.114 350.1.13.10 4.2.7.2.686 [id number] [facility] [id number] [facility] 2020-02-12 09:15:00 2020-02-12 09:15:00 Outpatient R MEGAN BLANCO [facility] [id number] [facility] 2019-12-04 00:00:00 2019-12-04 00:00:00 Refill Jocelyn Glez [facility] 1.2.840.114 350.1.13.10 4.2.7.2.686 [id number] [facility] 2019-12-02 00:00:00 2019-12-02 00:00:00 Refill Doctor Unassigned, [place] [facility] 1.2.840.114 350.1.13.10 4.2.7.2.686 [id number] [facility] 2019-11-27 00:00:00 2019-11-27 00:00:00 Refill Megan Blanco [facility] 1.2.840.114 350.1.13.10 4.2.7.2.686 [id number] [facility] 2019-11-04 15:39:29 2019-11-04 16:22:04 Office Visit BlancoMegan estrada [facility] 1.2.840.114 350.1.13.10 4.2.7.2.686 [id number] [facility] 2019-11-04 16:00:00 2019-11-04 16:00:00 Outpatient R MEGAN BLANCO [facility] [id number] [facility] 2019-10-24 06:25:19 2019-10-24 10:10:00 Hospital Encounter Megan Blanco [facility] 1.2.840.114 350.1.13.10 4.2.7.2.686 [id number] [facility] 2019-10-23 12:51:00 2019-10-23 17:36:52 Laboratory Only Only, Adc Test Casey Buckley [facility] 1.2.840.114 350.1.13.10 4.2.7.2.686 [id number] [facility] 2019-10-23 13:00:00 2019-10-23 13:00:00 Outpatient R CASEY BUCKLEY [facility] [id number] [facility] 2019-10-23 00:00:00 2019-10-23 00:00:00 Orders Only Doctor Unassigned, [place] [facility] 1.2.840.114 350.1.13.10 4.2.7.2.686 [id number] [facility] 2019-10-17 00:00:00 2019-10-17 00:00:00 Telephone Sean Blancoel [facility] 1.2840.114 350.1.13.10 4.2.7.2.686 [id number] [facility] 2019-08-18 00:00:00 2019-08-18 00:00:00 [facility] 1.2840.114 350.1.13.10 4.2.7.2.686 [id number] [facility] 2019-07-22 00:00:00 2019-07-22 00:00:00 [facility] 1.2840.114 350.1.13.10 4.2.7.2.686 [id number] [facility] 2019-07-14 00:00:00 2019-07-14 00:00:00 Telephone Jocelyn Glez [facility] 1.2.840.114 350.1.13.10 4.2.7.2.686 [id number] [facility] 2019-07-01 13:57:45 2019-07-01 16:05:24 Office Visit Megan Blanco [facility] 1.2.840.114 350.1.13.10 4.2.7.2.686 [id number] [facility] 2019-07-01 14:00:00 2019-07-01 14:00:00 Outpatient R MEGAN BLANCO [facility] [id number] [facility] 2019-07-01 00:00:00 2019-07-01 00:00:00 Orders Only Doctor Unassigned, [place] [facility] 1.2.840.114 350.1.13.10 4.2.7.2.686 [id number] [facility] 2019-05-28 12:25:55 2019-05-28 13:19:57 Office Visit Deandra Griffith [facility] 1.2.840.114 350.1.13.10 4.2.7.2.686 [id number] [facility] 2019-05-28 00:00:00 2019-05-28 00:00:00 Orders Only Doctor Unassigned, [place] [facility] 1.2.840.114 350.1.13.10 4.2.7.2.686 [id number] [facility] 2019-05-21 12:21:00 2019-05-21 23:59:00 Hospital Encounter Deandra Griffith [facility] 1.2.840.114 350.1.13.10 4.2.7.2.686 [id number] [facility] 2019-05-21 00:00:00 2019-05-21 00:00:00 Orders Only Doctor Unassigned, [place] [facility] 1.2.840.114 350.1.13.10 4.2.7.2.686 [id number] [facility] Results Test Description Test Time Test Comments Results Result Co mments Source [facility]24[facility] 04:24:42 SALICYLATE<10mg/L01/22/2024 11:24 PM [facility]: ? Analgesic and Antipyretic Use ? 20- 100 mg/L ? ? Anti-Inflammatory Use ?100-250 mg/L Toxic Range: ? 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 [facility] HospitalAcetaminophen2024-09-25 04:24:11* Test Item Value Reference Range Interpretation Comme nts ACETAMINOP (test code = 9777917349) 10.0-30.0 L NEAL (test code = NEAL) Toxic: Greater abundio n 200 ug/mL @ 4 hour post ingestion or greater than 50 ug/mL @ 12 hour post ingestion Lab Interpretation (test code = 38095-4) Abnormal [facility] Metabolic Panel (12971)2024-01-23 04:22:29* Test Item Value Reference Range Interpretation Comme nts NA (test code = 0719105693) 140 mmol/L 135-145 K (test code = 1949088104) 3.8 mmol/L 3.5-5.0 CL (test code = 6157246528) 107 mmol/L 98-108 CO2 TOTAL (test code = 9941845640) 25 mmol/L 23-31 AGAP (test code = 4144433276) 8 2-16 BUN (test code = 8412194805) 11 mg/dL 7-23 GLUCOSE (test code = 9044205531) 132 mg/dL 70-110 H CREATININE (test code = 2160-0) 0.77 mg/dL 0.50-1.04 TOTAL BILI (test code = 7493145745) 1.5 mg/dL 0.1-1.1 H CALCIUM (test code = 3670776638) 9.9 mg/dL 8.6-10.6 T PROTEIN (test code = 2521194618) 7.9 g/dL 6.3-8.2 ALBUMIN (test code = 4958465263) 4.6 g/dL 3.5-5.0 ALK PHOS (test code = 0720534035) 87 U/L 34-122 ALTv (test code = 1742-6) 21 U/L 5-35 AST(SGOT) (test code = 8810437926) 21 U/L 13-40 eGFR (test code = 07882-8) 92.9 mL/min/1.73m2 CKD-EPI eGFR (2020). Assuming creatinine has been stable day-to-day for at least three months, the eGFR indicates Category G1 (>= 90 mL/min/1.73 m2) Lab Interpretation (test code = 03397-8) Abnormal [facility] [id number] 04:22:08* Test Item Value Reference Range Interpretation Comme nts CK (test code = 1517685952) 90 U/L 33-194 Lab Interpretation (test cod e = 31132-7) Normal [facility] [id number] 04:15:00* Test Item Value Reference Range Interpretation Comme nts POCT PREG (test code = 1605) Negative On board controls acceptable with C Line (test code = 3574) Yes POCT PREG LOT # (test code = 3575) [id number] POCT PREG TEST DATE ( test code = 3576) 2025-02-06 Lab Interpretation (test cod e = 04708-7) Normal [facility] Hospital[facility]bc with [id number] 03:56:48* Test Item Value Reference Range Interpretation Comme nts WBC (test code = 6690-2) 8.19 4.30-11.10 RBC (test code = 789-8) 4.50 3.93-5.25 HGB (test code = 718-7) 14.1 g/dL 11.6-15.0 HCT (test code = 4544-3) 41.7 % 35.7-45.2 MCV (test code = 787-2) 92.7 fL 80.6-95.5 MCH (test code = 785-6) 31.3 pg 25.9-32.8 MCHC (test code = 786-4) 33.8 g/dL 31.6-35.1 RDW-SD (test code = 46097-2) 41.6 fL 39.0-49.9 RDW-CV (test code = 788-0) 12.0 % 12.0-15.5 PLT (test code = 777-3) 261 166-358 MPV (test code = 13369-5) 9.4 fL 9.5-12.9 L NRBC/100 WBC (test code = 7028332445) 0.0 0.0-10.0 NRBC x10^3 (test code = 4725407876) See_Comment [Automated messa ge] The system which generated this result transmitted reference range: 10*3/?L. The reference range was not used to interpret this result as normal/abnormal. GRAN MAT (NEUT) % (test code = 770-8) 68.3 % IMM GRAN % (test code = 2625001882) 0.40 % LYMPH % (test code = 736-9) 23.8 % MONO % (test code = 5905-5) 6.6 % EOS % (test code = 713-8) 0.5 % BASO % (test code = 706-2) 0.4 % GRAN MAT x10^3(ANC) (test code = 5969156791) 5.60 10*3/uL 1.88-7.09 IMM GRAN x10^3 (test code = 6475800748) 0.03 10*3/uL 0.00-0.06 LYMPH x10^3 (test code = 731-0) 1.95 10*3/uL 1.32-3.29 MONO x10^3 (test code = 742-7) 0.54 10*3/uL 0.33-0.92 EOS x10^3 (test code = 711-2) 0.04 10*3/uL 0.03-0.39 BASO x10^3 (test code = 704-7) 0.03 10*3/uL 0.01-0.07 Lab Interpretation (test code = 47636-3) Abnormal [facility] CERVICAL SPINE WO [id number] 18:25:09CT CERVICAL SPINE WO CONTRAST, CT THORACIC SPINE WO CONTRAST HISTORY: ?Compression fracture, cervical COMPARISON: None. TECHNIQUE: Axial CT of the cervical spine and thoracic was performed.Coronal and sagittal reformatted images were generated. FINDINGS: CERVICAL SPINE: The cervical curvature is nor mal. The vertebral bodies are normal in heightand in normal alignment. No facet fracture or subluxation is present. Thecraniocervical junction is intact. The prevertebral soft tissues areunremarkable. The disc spaces are maintained. The visualized cervical soft tissues and visualized lung apices areunremarkable. THORACIC SPINE: The vertebral bodies are normal in height and alignment. No acute fractureor subluxation. Disc spaces are maintained. Mild degenerative changes in the form ofanterior osteophyte formation. The paraspinal soft tissues are unremarkable.[facility] THORACIC SPINE WO CONTRAST 2023-10-26 18:25:09CT CERVICAL SPINE WO CONTRAST, CT THORACIC SPINE WO CONTRAST HISTORY: ?Compression fracture, cervical COMPARISON: None. TECHNIQUE: Axial CT of the cervical spine and thoracic was performed.Coronal and sagittal reformatted images were generated. FINDINGS: CERVICAL SPINE: The cervical curvature is normal. The vertebral bodies are normal in heightand in normal alignment. No facet fracture or subluxation is present. Thecraniocervical junction is intact. The prevertebral soft tissues areunremarkable. The disc spaces are maintained. The visualized cervical soft tissues and visualized lung apices areunremarkable. THORACIC SPINE: The vertebral bodies are normal in height and alignment. No acute fractureor subluxation. Disc spaces are maintained. Mild degenerative changes in the form ofanterior osteophyte formation. The paraspinal soft tissues are unremarkable.[facility] [id number] 19:33:00* Test Item Value Reference Range Interpretation Comme nts POCT PREG (test code = 1605) Negative On board controls acceptable with C Line (test code = 3574) Yes POCT PREG LOT # (test code = 3575) POCT PREG TEST DATE (test code = 3576) NEAL (test code = NEAL) accurate developme nt and interpretation of all internal controls [facility] [id number] 19:33:00* Test Item Value Reference Range Interpretation Comme nts POCT PREG (test code = 1605) Negative On board controls acceptable with C Line (test code = 3574) Yes POCT PREG LOT # (test code = 3575) POCT PREG TEST DATE (test code = 3576) NEAL (test code = NEAL) accurate developme nt and interpretation of all internal controls [facility] [id number] 19:33:00* Test Item Value Reference Range Interpretation Comme nts POCT PREG (test code = 1605) Negative On board controls acceptable with C Line (test code = 3574) Yes POCT PREG LOT # (test code = 3575) POCT PREG TEST DATE (test code = 3576) NEAL (test code = NEAL) accurate developme nt and interpretation of all internal controls [facility] [id number] 11:50:00* Test Item Value Reference Range Interpretation Comme nts POCT PREG (test code = 1605) Negative On board controls acceptable with C Line (test code = 3574) Yes POCT PREG LOT # (test code = 3575) [id number] POCT PREG TEST DATE ( test code = 3576) 2021-01-27 Lab Interpretation (test cod e = 15416-9) Normal [facility] (ID NOW RAPID TESTING)2019-10-23 19:13:00* Test Item Value Reference Range Interpretation Comme nts SARS-CoV-2 Rapid ID NOW (test code = 21876-5) Not Detected Not Detected NEAL (test code = NEAL) ID NOW COVID-19 As say is an isothermal nucleic acid amplification test intended for the qualitative detection of nucleic acid from SARS-CoV-2 viral RNA in nasopharyngeal (STRIP ROLLER) specimens. It is used under Emergency Use [...] patient testing if clinically indicated. Lab Interpretation (test code = 46686-9) Normal [facility] (ID NOW RAPID TESTING)2019-10-23 19:13:00* Test Item Value Reference Range Interpretation Comme nts SARS-CoV-2 Rapid ID NOW (test code = 29221-4) Not Detected Not Detected NEAL (test code = NEAL) ID NOW COVID-19 As say is an isothermal nucleic acid amplification test intended for the qualitative detection of nucleic acid from SARS-CoV-2 viral RNA in nasopharyngeal (STRIP ROLLER) specimens. It is used under Emergency Use [...] patient testing if clinically indicated. Lab Interpretation (test code = 01606-8) Normal [facility] M[facility] [id number] 19:45:39Examination:BI DIAGNOSTIC MAMMOGRAM BILATERAL History:Patient is 49 year old and is seen for: ?Leftbreast pain. ?never had a mammogram and fam hx of breast cancer. Computer-aided detection (CAD) utilized. Comparisons : None available Findings:The breasts have scattered areas of fibroglandular density. There is no evidence of suspicious masses, calcifications, or other abnormal findings. Impression:No signs of malignancy. Recommendation:Annual mammographic follow-up - Bilateral BI-RADS Category: Both 2 - [facility]ignUnTexas [facility] Notes Date/Time Note Provider Source 2024-01-23 02:45:44 Pt given printed and verbal discharge instructions regarding altered level of consciousness. Pt verbalized understanding of instructions, pt awake alert oriented, resp reg unlabored, skin w/d, color appropriate for race, moves all ext well,pt encouraged to follow up with pcp. Advised to seek medical attention for new/prolonged/worsening of symptoms. No adverse reaction to meds given in ER noted upon discharge. PIV d'cd, dressing to site, catheter in tact. Awake, alert oriented, resp reg unlabored, skin w/d, pt leaving amb with steady gait, in no apparent distress. Bronwyn Lemon RN [facility] 2024-01-23 00:07:08 ERP notified of BP will continue to monitor. T [facility] 2024-01-22 21:59:42 Pt arrived ambulatory with spouse for AMS. reports she fainted yesterday but was caught before she fell and was complaining of back of head pain. She began acting bizarre last night and then worsened this morning. Pt drove grandchild to school but it took her a very long time. Pt has been calling her her father and has been confused all day. In the WR pt was acting inappropriate with other patients, taking peoples cell phones. Had to have [facility] at her side while awaiting triage. Pt acting very inappropriate and bizarre. Dr. Morillo at bedside. Pt only states her name. Pt attempting to bite staff while obtaining vital signs Kim Shore RN [facility] 2023-10-26 14:33:28 Patient dc home. Follow up with pcp as needed. Verbalized understanding signed paper work. [facility] 2023-10-26 13:12:14 Pain to left side of neck. Worse upon palpation. T [facility] 2023-10-26 12:26:25 Pain to left side of neck x 2 weeks and got worse over the past 4 days. No known trauma and no known injury. [facility] Ranjith Clarke RN [facility]
[2024-01-24] MEDS ORDERED: THIAMINE 200 MG/2 ML INJ ONE (06:15)
[2024-01-24] MEDS ORDERED: NA CHLORIDE 0.9% 2,000 ML ONE (06:16)
[2024-01-24 06:23] LABS: Absolute Basophils 0.1 K/uL (0-0.5); Absolute Eosinophils 0.1 K/uL (0-0.5); Absolute Lymphocytes (CBC) 2.5 K/uL (0.7-4.9); Absolute Monocytes 0.6 K/uL (0.1-1.3); Absolute Neutrophil 3.6 K/uL (1.8-8.0); Basophils % 0.8 % (0-1.3); Eosinophils % 1.8 % (0-4.4); Hematocrit 42.9 % (36.0-45.0); Hemoglobin 14.1 g/dL (12.0-15.0); Lymphocytes % 36.5 % (15.3-44.8); MCHC 32.9 g/dL (32.0-36.0); MCV 94.1 fL (80-100); MPV 8.1 fL (7.6-11.3); Monocytes % 8.2 % (3.3-12.3); Neutrophils % 52.7 % (41.7-73.7); Platelets 233 thou/uL (152-406); RBC Red Blood Cell Count 4.56 M/uL (3.86-4.86); Red Cell Distribution Width 12.8 % (12.1-15.2)
[2024-01-24 07:23] LABS: ALT/SGPT 20 U/L (13-56); AST/SGOT 18 U/L (15-37); Albumin 3.5 g/dL (3.4-5.0); Albumin/Globulin Ratio 0.9 (1.1-1.8); Alkaline Phosphatase 77 U/L (45-117); Anion Gap 6.3 mEq/L (5.0-15.0); BUN Blood Urea Nitrogen 10 mg/dL (7-18); Bicarbonate 25 mEq/L (21-32); Bilirubin Direct 0.4 mg/dL (0-0.2); Bilirubin Indirect, Calculated 1.7 mg/dL (0.2-0.8); Bilirubin Total 2.1 mg/dL (0.2-1.0); Globulin 3.9 g/dL (2.3-3.5); Glomerular Filtration Rate 97 ml/min (=/>90); Glucose Level 90 mg/dL (74-106); Potassium 3.3 mEq/L (3.5-5.1); Protein, Total 7.4 g/dL (6.4-8.2); Sodium Level 139 mEq/L (136-145)
[2024-01-24 07:24] LABS: C-Reactive Protein < 2.90 mg/L (<3.00)
[2024-01-24 07:28] LABS: Protime INR 1.17
[2024-01-24] MEDS ORDERED: NA CHLORIDE 0.9% 1,000 ML ONE (07:41)
--- NOTE | 2024-01-24 08:00 | RAD REPORT ---
EXAM: Head Brain Wo Cont HISTORY: CONFUSED COMPARISON: None TECHNIQUE: Multiple contiguous axial images were obtained for a CT of the brain without contrast. Sag ittal and coronal reformats were performed. One or more of the following dose reduction techniques were used: Automated exposure control, adjus tment of the mA and kV according to patient size, and iterative reconstruction. Unless otherwise specified, incidental findings do not require dedicated imaging follow-up. FINDINGS: No evidence of hydrocephalus, intracranial hemorrhage, or extra-axial fluid collection. The brain is normal in morphology. The calvarium is intact. The visualized paranasal sinuses and mastoid air cells are essentially clear . IMPRESSION: No evidence of acute intracranial abnormality.
--- NOTE | 2024-01-24 09:24 | RAD REPORT ---
EXAMINATION: Abdomen Pelvis Wo Contrast CLINICAL INDICATION: Female, 53 years old. AMS, abnormal LFTs TECHNIQUE: CT abdomen and pelvis was performed, without IV contrast, as per department protocol. Axia l, sagittal and coronal reconstructions were obtained. One or more of the following dose reduction techniques were used: Automated exposure control, adjustment of the mA and kV according to the patien t size, and iterative reconstruction. Unless otherwise specified, incidental findings do not require dedicated imaging follow-up. COMPARISON: No prior exam. FINDINGS: The lack of intravenous contrast limits the sensitivity of this exam for evaluation of solid visceral organs, vascular structures, and retroperitoneum. LOWER CHEST: The visualized lung bases are clear. LIVER: Normal in size and contour. No focal lesion. BILIARY SYSTEM: No suspicious abnormalities. SPLEEN: Normal size. No focal lesion. PANCREAS: No mass, ductal dilation, or jean pierre-pancreatic fluid. ADRENALS: Normal; no mass. KIDNEYS AND URETERS: Normal size and contour. No hydronephrosis. URINARY BLADDER: Normal contour. GASTROINTESTINAL TRACT: No evidence of bowel obstruction, significant free fluid, free air or abscess . APPENDIX: Normal appendix. LYMPH NODES: No lymphadenopathy. MUSCULOSKELETAL: No acute or suspicious osseous abnormality. ADDITIONAL FINDINGS: None. IMPRESSION: No acute or concerning abnormalities in the abdomen or pelvis, with evaluation limited by lack of IV contrast.
[2024-01-24 09:37] LABS: Specific Gravity >= 1.030 (1.005-1.030); Urine Bilirubin Negative (Negative); Urine Blood Negative (Negative); Urine Clarity Clear (Clear); Urine Color Yellow (Yellow); Urine Glucose Negative (Negative); Urine Ketones 4+ (Negative); Urine Nitrite Negative (Negative); Urine Protein Negative (Negative); Urine Urobilinogen 0.2 mg/dL (0.2-1.0)
[2024-01-24 09:50] LABS: Barbiturates NEGATIVE (NEGATIVE); Benzodiazepines NEGATIVE (NEGATIVE); Cocaine NEGATIVE (NEGATIVE); METHAMPHETAM NEGATIVE (NEGATIVE); Methadone NEGATIVE (NEGATIVE); Opiates NEGATIVE (NEGATIVE); Phencyclidine NEGATIVE (NEGATIVE); THC Cannibis POSITIVE (NEGATIVE)
[2024-01-24 09:55] LABS: Urine Microscopic Reflex YN NO UMIC
[2024-01-24 09:59] LABS: Specific Gravity > 1.030 (1.005-1.030)
--- NOTE | 2024-01-24 09:59 | EDPHYS ---
Physician Documentation [facility] Name: Qi Romero Age: 53 yrs Sex: Female : 1970 Arrival Date: 01/24/2024 Time: 06:00 Bed 3 Private MD: ED Physician Silviano Randall HPI: 01/23 06:02 This 53 yrs old Female presents to ER via Unassigned with complaints of sp4 Altered Mental Status. 06:04 PMH- Historical: Allergies: No Known Allergies; Home Meds: Excedrin Migraine PMHx: sp4 None; PSHx: section;. 53-year-old female presents for acute mental status changes. Patient was reported to be unwell by the police. Police officers were at the scene and have called EMS for evaluation for altered mental status and confusion.. On arrival patient is unable to explain what is wrong, appears confused. Does not know her own name. HPI not available . . 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 - Infectious Disease History:: Denies. - Family history:: not pertinent. - Social history:: Smoking status: unknown. ROS: 06:07 Constitutional: Negative for fever, chills, and weight loss, positive for confusion sp4 and AMS 06:07 All other systems are negative, 06:07 Unable to obtain ROS due to altered mental status, Exam: 06:07 Constitutional: This is a well developed, well nourished patient who is awake, alert, sp4 and in no acute distress. Patient is laughing inappropriately, alert not oriented. Not able to state her own name Head/Face: Normocephalic, atraumatic. Eyes: Pupils equal round and reactive to light, extra-ocular motions intact. Lids and lashes normal. Conjunctiva and sclera are not injected. Cornea within normal limits. Periorbital areas with no swelling, redness, or edema. ENT: Nares patent. No nasal discharge, no septal abnormalities noted. Tympanic membranes are normal and external auditory canals are clear. Oropharynx with no redness, swelling, or masses, exudates, or evidence of obstruction, uvula midline. Mucous membranes moist. Neck: Trachea midline, no thyromegaly or masses palpated, and no cervical lymphadenopathy. Supple, full range of motion without nuchal rigidity, or vertebral point tenderness. Chest/axilla: Normal chest wall appearance and motion. Nontender with no deformity. No lesions are appreciated. Cardiovascular: Regular rate and rhythm with a normal S1 and S2. No gallops, murmurs, or rubs. Normal PMI, no JVD. No pulse deficits. Respiratory: Lungs have equal breath sounds bilaterally, clear to auscultation and percussion. No rales, rhonchi or wheezes noted. No increased work of breathing, no retractions or nasal flaring. Abdomen/GI: Soft, with normal bowel sounds. No distension or tympany. No guarding or rebound. No evidence of tenderness throughout. Back: No spinal tenderness. No costovertebral tenderness. Skin: Warm, dry with normal turgor. Normal color with no rashes, no lesions, and no evidence of cellulitis. MS/ Extremity: Pulses equal, no cyanosis. Neurovascular intact. Full, normal range of motion. Neuro: Awake . Cranial nerves II-XII grossly intact. Motor strength 5/5 in all extremities. Sensory grossly intact. 07:12 ECG was reviewed by the Attending Physician. KG at 0 659 normal sinus rhythm, rate sp4 95 Vital Signs: 06:03 BP 130 / 83; Pulse 95; Resp 17; Temp 97.5; Pulse Ox 100% on R/A; Weight 67.5 kg; Height bm8 5 ft. 3 in. ; Pain 0/10; 06:57 BP 92 / 56; Pulse 72; Resp 18; Pulse Ox 100% on R/A; br2 07:33 BP 87 / 57; Pulse 65; Resp 16; Pulse Ox 100% on R/A; db 08:00 BP 88 / 52; Pulse 68; Resp 16; Pulse Ox 100% on R/A; db 08:10 BP 108 / 55; Pulse 72; Resp 18; Pulse Ox 100% on R/A; db 08:20 Temp 97.7(O); db 09:30 BP 126 / 80; Pulse 82; Resp 16; Pulse Ox 100% on R/A; db 10:30 BP 116 / 57; Pulse 79; Resp 18; Pulse Ox 100% on R/A; db 11:30 BP 123 / 58; Pulse 71; Resp 16; Pulse Ox 100% on R/A; db 06:03 Body Mass Index 26.36 (67.50 kg, 160.02 cm) bm8 06:03 Pain Scale: Adult bm8 07:33 NS BOLUS INFUSED. WILL NOTIFY DR. MARCIO darden [place] Coma Score: 06:07 Eye Response: spontaneous(4). Motor Response: obeys commands(6). Verbal Response: sp4 inappropriate words(3). Total: 13. 06:11 Eye Response: spontaneous(4). Motor Response: obeys commands(6). Verbal Response: bm8 oriented(5). Total: 15. 07:43 Eye Response: to voice(3). Motor Response: obeys commands(6). Verbal Response: db confused(4). Total: 13. MDM: 06:28 Differential Diagnosis: electrolyte abnormality, intracranial bleed, overdose, sp4 pneumonia, seizure, sepsis. Data reviewed: vital signs, nurses notes, EMS record, old medical records, lab test result(s), EKG, radiologic studies, CT scan. 06:28 Consideration of Admission/Observation Escalation of care including sp4 admission/observation considered. ED course: positive for confusion , possible intoxication . 06:29 Transition of care: After a detail discussion of the patient's case, care is sp4 transferred to Lasha Hanson MD. 06:40 Patient medically screened. sp4 07:13 Transition of care: After a detail discussion of the patient's case, care is sp4 transferred to Silviano Randall MD. 07:35 ED course: Patient signed out to me by previous attending, staff feels like she was rn intoxicated with unknown substance. Patient was agitated and combative when came in and noncompliant. Patient resting comfortably with normal vital signs but refusing cardiac and oxygen monitoring.. 09:57 ED course: Spouse here for more information now. Reports he noted patient passed out, rn had syncopal episode that began twitching. Reports recent visit to [facility] ER with negative workup for similar episode. Told to follow-up and get an outpatient MRI which they have not been able to do. He denies any drug use or daily alcohol intake. No history of withdrawal. Patient reevaluated and is more alert and cooperative but still reports dizziness and does not feel right. Patient slow to respond but no focal neurological findings on exam. NIHSS 0.. 09:59 ED course: No source of infection identified. Hypotension responded well to fluids and rn has 4+ ketones in urine, hypotension likely secondary to volume depletion and not sepsis.. 01/23 06:03 Order name: Acetaminophen; Complete Time: 07:43 sp4 01/23 06:03 Order name: Basic Metabolic Panel; Complete Time: 07:43 sp4 01/23 06:03 Order name: CBC with Diff; Complete Time: 07:12 sp4 01/23 06:03 Order name: ETOH Level; Complete Time: 07:12 sp4 01/23 06:03 Order name: Hepatic Function; Complete Time: 07:43 sp4 01/23 06:03 Order name: PT-INR; Complete Time: 07:43 sp4 01/23 06:03 Order name: Test, Urine [facility] 01/23 06:03 Order name: Ptt, Activated; Complete Time: 07:43 sp4 01/23 06:03 Order name: Salicylate; Complete Time: 07:12 sp4 01/23 06:03 Order name: Urine Drug Screen; Complete Time: 09:59 sp4 01/23 06:04 Order name: CRP; Complete Time: 07:43 sp4 01/23 06:04 Order name: TSH; Complete Time: 07:43 sp4 01/23 06:04 Order name: T4 Free; Complete Time: 07:43 sp4 01/23 09:37 Order name: Urinalysis w/ reflexes; Complete Time: 09:59 EDWA 01/23 06:03 Order name: CT Head Brain wo Cont; Complete Time: 08:10 4 01/23 08:31 Order name: Abdomen EDWA 01/23 10:32 Order name: EEG Request EDWA 01/23 10:32 Order name: Stroke Protocol EDWA 01/23 06:03 Order name: EKG - Nurse/Tech; Complete Time: 07:08 4 01/23 06:03 Order name: IV Saline Lock; Complete Time: 06:13 sp4 01/23 06:03 Order name: Labs collected and sent; Complete Time: 06:13 sp4 01/23 06:03 Order name: Suicide Screening ([place]); Complete Time: 06:13 sp4 EC:12 Rate is 95 beats/min. Rhythm is regular, Normal Sinus Rhythm. QRS [place] is Normal. ND sp4 interval is normal. QRS interval is normal. QT interval is normal. No Q waves. T waves are Normal. No ST changes noted. Clinical impression: No evidence of ischemia. Interpreted by me. Reviewed by me. Administered Medications: 06:20 CANCELLED (Physician Discretion): Banana Bag - (ns 0.9% 1000 ml, folic acid ivpb 1 mg, bm8 [id number] mg, multivitamin1 amp) IV at calculated rate once 06:21 Drug: NS 0.9% IV 1000 ml IV at 125 ml/hr continuous Route: IV; Rate: 125 ml/hr; Site: bm8 right hand; 10:56 Follow up: Response: No adverse reaction; IV Status: Completed infusion db 06:34 Drug: Thiamine IV 100 mg IV at bolus once Route: IV; Rate: bolus; Site: right hand; bm8 10:56 Follow up: Response: No adverse reaction; IV Status: Completed infusion db 07:45 Drug: NS 0.9% IV 1000 ml IV at 1000 ml once Route: IV; Rate: 1000 ml; Site: right hand; db 10:55 Follow up: Response: No adverse reaction; IV Status: Completed infusion; IV Intake: db 1000ml 10:55 Drug: Keppra IV 1000 mg IV at calculated rate once Route: IV; Rate: calculated rate; db Site: right hand; 11:55 Follow up: Response: No adverse reaction; IV Status: Completed infusion; IV Intake: kb3 100ml Disposition Summary: 01/24/24 09:59 Hospitalization Ordered Notes: Hospitalization Status: Observation rn Provider: Krzysztof Randall rn Condition: Stable rn Problem: new rn Symptoms: have improved rn Bed/Room Type: Standard rn Location: Telemetry/MedSurg (observation)(01/24/24 13:44) bd Room Assignment: 232(01/24/24 13:44) bd Diagnosis - Altered mental status, unspecified rn - Syncope rn - Possible seizure rn Forms: - Medication Reconciliation Form rn - SBAR form rn - Leadership Thank You Letter rn Signatures: Dispatcher [employer] EDMS Lindsay Salinas Irene, RN RN iw Silviano Randall MD MD rn Benton, Danielle, RN Chalino De La Garza MD MD sp4 Ayden Browning, RN RN bm8 Romelia Rangel RN kb3 Corrections: (The following items were deleted from the chart) 06:03 06:03 ACETAMINOPHEN+C.LAB.BRZ ordered. EDMS EDMS 06:03 06:03 BASIC METABOLIC PANEL+C.LAB.BRZ ordered. EDMS EDMS 06:03 06:03 CBC+H.LAB.BRZ ordered. EDMS EDMS 06:03 06:03 ETHANOL+C.LAB.BRZ ordered. EDMS EDMS 06:03 06:03 HEPATIC FUNCTION+C.LAB.BRZ ordered. EDMS EDMS 06:03 06:03 PROTIME (+INR)+COAG.LAB.BRZ ordered. EDMS EDMS 06:03 06:03 Test, Urine+UC.LAB.BRZ ordered. EDMS EDMS 06:03 06:03 PTT, ACTIVATED+COAG.LAB.BRZ ordered. EDMS EDMS 06:03 06:03 SALICYLATE+C.LAB.BRZ ordered. EDMS EDMS 06:03 06:03 URINE DRUG SCREEN+UC.LAB.BRZ ordered. EDMS EDMS 06:03 06:03 Head Brain Wo Cont+CT.RAD.BRZ ordered. EDMS EDMS 06:20 06:03 Banana Bag - (Multivitamin IV 1 amp, NS 0.9% IV 1000 ml, Thiamine IV 100 mg, bm8 foLIC Acid IVPB 1 mg) IV at calculated rate once ordered. sp4 08:31 07:45 Abdomen Pelvis W Con+CT.RAD.BRZ ordered. EDMS EDMS 09:44 06:03 Urinalysis+U.LAB.BRZ ordered. EDMS EDMS 11:38 09:59 Telemetry/MedSurg (observation) rn bd 11:38 09:59 rn bd 13:44 11:38 [facility] ER HOLD bd bd 13:44 11:38 ERHOLD- bd bd
--- NOTE | 2024-01-24 09:59 | ER ---
Nurse's Notes [facility] Name: Qi Romero Age: 53 yrs Sex: Female : 1970 Arrival Date: 01/24/2024 Time: 06:00 Bed 3 Private MD: Diagnosis: Altered mental status, unspecified;Syncope;Possible seizure Presentation: 01/23 06:03 Chief complaint: EMS states: called out by police for an altered mental patient. on bm8 scene street drugs were seen, pt admits to nothing. Coronavirus screen: At this time, the client does not indicate any symptoms associated with coronavirus-19. Ebola Screen: Patient negative for fever greater than or equal to 101.5 degrees Fahrenheit, and additional compatible Ebola Virus Disease symptoms Patient denies exposure to infectious person. Patient denies travel to an Ebola-affected area in the 21 days before illness onset. No symptoms or risks identified at this time. Initial Sepsis Screen: Does the patient meet any 2 criteria? No. Patient's initial sepsis screen is negative. Does the patient have a suspected source of infection? No. Patient's initial sepsis screen is negative. Risk Assessment: Do you want to hurt yourself or someone else? Patient reports no desire to harm self or others. Onset of symptoms is unknown. 06:03 Method Of Arrival: EMS: [facility] bm8 06:03 Acuity: JOYA 3 bm8 06:19 Care prior to arrival: Medication(s) given: Ativan 2 mg IM. bm8 Triage Assessment: 06:03 General: Appears in no apparent distress. comfortable, Behavior is calm, cooperative, bm8 appropriate for age. Pain: Denies pain. EENT: No deficits noted. Neuro: Level of Consciousness is awake, alert, obeys commands, Oriented to person, Breaker Up are equal bilaterally Moves all extremities. Full function Speech is normal, Facial symmetry appears normal, Pupils are PERRLA. Cardiovascular: Denies chest pain, Capillary refill < 3 seconds Patient's skin is warm and dry. Rhythm is sinus rhythm. Respiratory: Airway is patent Respiratory effort is even, unlabored, Respiratory pattern is regular, symmetrical, Breath sounds are clear bilaterally. GI: No signs and/or symptoms were reported involving the gastrointestinal system. : No signs and/or symptoms were reported regarding the genitourinary system. Derm: No signs and/or symptoms reported regarding the dermatologic system. Musculoskeletal: No signs and/or symptoms reported regarding the musculoskeletal system. ICT SYSTEMS TEST ENGINEER: 06:03 unknown bm8 Historical: - Allergies: 15:13 No Known Allergies; db - PSHx: 06:06 section; sp4 - Immunization history:: Adult Immunizations unknown. - Infectious Disease History:: Denies. - Family history:: not pertinent. - Social history:: Smoking status: unknown. Screenin:11 [facility] ED Fall Risk Assessment (Adult) History of falling in the last 3 months, bm8 including since admission No falls in past 3 months (0 pts) Confusion or Disorientation No (0 pts) Intoxicated or Sedated No (0 pts) Impaired Gait No (0 pts) Mobility Assist Device Used No (0 pt) Altered Elimination No (0 pt) Score/Fall Risk Level 0 - 2 = Low Risk Oriented to surroundings, Maintained a safe environment, Educated pt \T\ family on fall prevention, incl call for assistance when getting out of bed, Assessed \T\ reinforced patient's understanding of fall precautions, Hourly rounding (assess needs \T\ fall precautionary measures) done. Abuse screen: Denies threats or abuse. Nutritional screening: No deficits noted. Tuberculosis screening: No symptoms or risk factors identified. Assessment: 07:40 Reassessment: Patient appears in no apparent distress at this time. Patient and/or db family updated on plan of care and expected duration. Pain level reassessed. Reassessment: PT LYING DOWN . IS EASILY AROUSABLE. General: Appears in no apparent distress. comfortable, Behavior is calm. Neuro: Respiratory: Airway is patent Respiratory effort is even, unlabored, Respiratory pattern is regular, symmetrical. 09:00 Reassessment: PT SPOUSE IS AT PATIENT BEDSIDE. db 09:11 Reassessment: PT ASSISTED TO RESTROOM VIA WHEELCHAIR. db 10:57 Reassessment: Patient appears in no apparent distress at this time. Patient and/or db family updated on plan of care and expected duration. Pain level reassessed. Patient states feeling better. 11:39 Reassessment: Patient appears in no apparent distress at this time. Patient and/or db family updated on plan of care and expected duration. Pain level reassessed. General: Appears in no apparent distress. comfortable, Behavior is calm. Neuro: Level of Consciousness is obeys commands, confused, Oriented to person. 12:45 Reassessment: Patient appears in no apparent distress at this time. Patient and/or db family updated on plan of care and expected duration. Pain level reassessed. TECH AT BEDSIDE WITH EEG. General: Appears in no apparent distress. comfortable. 14:01 Reassessment: Patient appears in no apparent distress at this time. REPORT FAXED TO db UNIT. CALL NO ANSWER. 15:00 Reassessment: Patient appears in no apparent distress at this time. Patient and/or db family updated on plan of care and expected duration. Pain level reassessed. Patient is alert, oriented x 3, equal unlabored respirations, skin warm/dry/pink. PT AMBULATORY TO RESTROOM. Vital Signs: 06:03 BP 130 / 83; Pulse 95; Resp 17; Temp 97.5; Pulse Ox 100% on R/A; Weight 67.5 kg; Height bm8 5 ft. 3 in. ; Pain 0/10; 06:57 BP 92 / 56; Pulse 72; Resp 18; Pulse Ox 100% on R/A; br2 07:33 BP 87 / 57; Pulse 65; Resp 16; Pulse Ox 100% on R/A; db 08:00 BP 88 / 52; Pulse 68; Resp 16; Pulse Ox 100% on R/A; db 08:10 BP 108 / 55; Pulse 72; Resp 18; Pulse Ox 100% on R/A; db 08:20 Temp 97.7(O); db 09:30 BP 126 / 80; Pulse 82; Resp 16; Pulse Ox 100% on R/A; db 10:30 BP 116 / 57; Pulse 79; Resp 18; Pulse Ox 100% on R/A; db 11:30 BP 123 / 58; Pulse 71; Resp 16; Pulse Ox 100% on R/A; db 06:03 Body Mass Index 26.36 (67.50 kg, 160.02 cm) bm8 06:03 Pain Scale: Adult bm8 07:33 NS BOLUS INFUSED. WILL NOTIFY DR. MARCIO darden [place] Coma Score: 06:07 Eye Response: spontaneous(4). Motor Response: obeys commands(6). Verbal Response: sp4 inappropriate words(3). Total: 13. 06:11 Eye Response: spontaneous(4). Motor Response: obeys commands(6). Verbal Response: bm8 oriented(5). Total: 15. 07:43 Eye Response: to voice(3). Motor Response: obeys commands(6). Verbal Response: db confused(4). Total: 13. ED Course: 06:02 Patient arrived in ED. bm8 06:02 Chalino Dickens MD is Attending Physician. sp4 06:03 Arm band placed on left wrist. bm8 06:08 Triage completed. bm8 06:11 Patient has correct armband on for positive identification. Bed in low position. Call bm8 light in reach. Client placed on continuous cardiac and pulse oximetry monitoring. NIBP monitoring applied. Pulse ox on. NIBP on. 06:11 No provider procedures requiring assistance completed. Initial lab(s) drawn, by me. bm8 Inserted saline lock: 22 gauge in right hand, using aseptic technique. Blood collected. Flushed with 10 mL NS. Patient maintains SpO2 saturation greater than 95% on room air. 06:13 T4 Free Sent. br2 06:13 TSH Sent. br2 06:13 CRP Sent. br2 06:13 Acetaminophen Sent. br2 06:13 Basic Metabolic Panel Sent. br2 06:13 CBC with Diff Sent. br2 06:13 ETOH Level Sent. br2 06:13 Hepatic Function Sent. br2 06:13 PT-INR Sent. br2 06:14 Ptt, Activated Sent. br2 06:14 Salicylate Sent. br2 06:34 Ayden Browning, RN is Primary Nurse. bm8 06:51 CT Head Brain wo Cont In Process Unspecified. EDMS 07:25 Attending Physician role handed off by Chalino Dickens MD rn 07:25 Silviano Randall MD is Attending Physician. rn 08:31 Abdomen In Process Unspecified. EDMS 09:28 Urine collected: clean catch specimen. db 09:58 Krzysztof Randall MD is Hospitalizing Provider. rn 13:38 EEG was done. at1 15:17 Provided Education on: DISCHARGE. Warm blanket given. Pillow given. db 15:17 IV discontinued, intact, bleeding controlled, No redness/swelling at site. PATIENT db INADVERTENTLY REMOVED IV UNABLE TO OBTAIN NEW ACCESS. Administered Medications: 06:20 CANCELLED (Physician Discretion): Banana Bag - (ns 0.9% 1000 ml, folic acid ivpb 1 mg, bm8 [id number] mg, multivitamin1 amp) IV at calculated rate once 06:21 Drug: NS 0.9% IV 1000 ml IV at 125 ml/hr continuous Route: IV; Rate: 125 ml/hr; Site: bm8 right hand; 10:56 Follow up: Response: No adverse reaction; IV Status: Completed infusion db 06:34 Drug: Thiamine IV 100 mg IV at bolus once Route: IV; Rate: bolus; Site: right hand; bm8 10:56 Follow up: Response: No adverse reaction; IV Status: Completed infusion db 07:45 Drug: NS 0.9% IV 1000 ml IV at 1000 ml once Route: IV; Rate: 1000 ml; Site: right hand; db 10:55 Follow up: Response: No adverse reaction; IV Status: Completed infusion; IV Intake: db 1000ml 10:55 Drug: Keppra IV 1000 mg IV at calculated rate once Route: IV; Rate: calculated rate; db Site: right hand; 11:55 Follow up: Response: No adverse reaction; IV Status: Completed infusion; IV Intake: kb3 100ml Medication: 06:11 VIS not applicable for this client. bm8 Intake: 10:55 IV: 1000ml; Total: 1000ml. db 11:55 IV: 100ml; Total: 1100ml. kb3 Outcome: 09:59 Decision to Hospitalize by Provider. rn 15:17 Admitted to Med/surg db 15:17 Condition: stable 15:17 Instructed on the need for admit, 15:21 Patient left the ED. tm6 Signatures: Dispatcher [employer] EDMS Silviano Randall MD MD rn Gonzales, Amanda, runstitching machine operator EKG Tat1 Romelia Rangel, RN RN kb3 Megan Stauffer, RN RN db Chalino Dickens MD MD sp4 Madiha Silva RN RN tm6 Ayden Browning RN RN bm8 Dorothy Nguyen RN RN br2
[2024-01-24] MEDS ORDERED: LEVETIRACETAM 500 MG/5 ML VIAL IV ONE (10:42)
[2024-01-24] MEDS ORDERED: NA CHLORIDE 0.9% 100 ML ONE (10:43)
--- NOTE | 2024-01-24 12:07 | EKG ---
Test Date: 2024-01-24 Test Time: 06:59:26 Sales Broker: [place] MEASUREMENT RESULTS: Intervals: Rate: 95 NE: 148 QRSD: 66 QT: 360 QTc: 452 [place]: P: 50 NE: 148 QRS: 64 T: 37 INTERPRETIVE STATEMENTS: Normal sinus rhythm Low voltage QRS Nonspecific T wave abnormality Abnormal ECG Compared to ECG 08/15/2021 21:49:13 Low QRS voltage now present T-wave abnormality now present Sinus tachycardia no longer present Myocardial infarct finding no longer present Electronically Signed On 01-24-24 12:06:50 CDT by Spenser Rand
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
[2024-01-24] MEDS ORDERED: NA CHLORIDE 0.9% 1,000 ML IV SCH (14:57)
[2024-01-24] MEDS ORDERED: ACETAMINOPHEN 500 MG TAB PO PRN (14:57)
[2024-01-24 15:14] VITALS: BP 104/64; TEMP 97.7
[2024-01-24 15:21] VITALS: BMI 26.3
[2024-01-24 15:32] VITALS: O2SAT 99
[2024-01-24] MEDS ORDERED: ENOXAPARIN 40 MG/0.4 ML SQ SCH (16:00)
[2024-01-24] MEDS ORDERED: levETIRAcetam 500 MG TAB PO SCH (21:00)
[2024-01-24] MEDS ORDERED: ATORVASTATIN 20 MG TAB PO SCH (21:00)
[2024-01-25] MEDS ORDERED: ASPIRIN EC 81 MG TAB PO SCH (09:00)
--- NOTE | 2024-01-28 08:55 | EEG ---
CHART: [id number] TEST ID#: [id number] DATE OF STUDY: 01-24-2024 THE EEG WAS RECORDED PORTABLE IN THE EMERGENCY ROOM ON A 17 CHANNEL MACHINE. ELECTRODES WERE APPLIED IN THE USUAL MANNER USING THE INTERNATIONAL 10-20 SYSTEM. THE WAKING BACKGROUND RHYTHM IN THIS RECORD CONSISTS OF WELL DEVELOPED AND WELL ORGANIZED WAVES OF 15 HZ., IN A WIDE DISTRIBUTION WHICH ATTENUATE NORMALLY WITH EYE OPENING. LOW-VOLTAGE 18-22 HZ WAS EXPRESSED IN THE FRONTAL REGIONS. THERE ARE NO FOCAL OR LATERALIZING FEATURES. NO EPILEPTIFORM ACTIVITY APPEARS. SLEEP OCCURRED NATURALLY. IN ADDITION NORMAL SLEEP PATTERNS ARE PRESENT. HYPERVENTILATION WAS NOT PERFORMED. PHOTIC STIMULATION PRODUCED POOR DRIVING BILATERALLY. IMPRESSION: NORMAL EEG FOR THE AGE OF THE SLEEP STATE.
== END 2024-01-24 15:34 | disposition left against medical advice (07) ==
LOC: ER 06:00 → ERHOLD 10:28 → 2ND 14:51
PROVIDERS: ADMIT Hospitalist; ATTEND Hospitalist
DX: R41.82 Altered mental status, unspecified (principal); E87.6 Hypokalemia; R55 Syncope and collapse; F12.90 Cannabis use, unspecified, uncomplicated; Z78.1 Physical restraint status; Z53.29 Procedure and treatment not carried out because of patient's decision for other reasons
CPT/HCPCS: 36415; 70450; 74176; 80048; 80076; 80143; 80179; 80307; 81003; 81025; 82077; 84439; 84443; 85025; 85610; 85730; 86140; 93005; 95819; 96365; 96366; 99285; G0378; J1953; J3411; J7030